=== PATIENT | female | born 1940 | race Caucasian/White ===

== ENCOUNTER 2016-10-15 18:41 | Inpatient (IN) | payer OTHER, MEDICARE ==
[~2016-10-15] VITALS: Ht 160 cm; Wt 94.7 kg
[~2016-10-15 18:41] MED LIST: ASPEC81 PO; CLTP PO; LISI-729 PO; MULT-513 PO; SIMV40TA2 PO; [UNRECOGNIZED DRUG - OTHER] PO
[2016-10-15] MEDS ORDERED: MoRPHine SULFATE 4 MG/ML 1 ML CARP\\VIAL IV STA ×2 (18:55→20:26)
[2016-10-15] MEDS ORDERED: SODIUM CHLORIDE 0.9% 1000ML 1,000 ML IV STA (18:55)
[2016-10-15] MEDS ORDERED: ONDANSETRON INJ 2 MG/ML 2 ML VIAL IV STA ×2 (18:55→20:26)
[2016-10-15] MEDS ORDERED: OPTIRAY 320 IV PRN (19:00)
--- NOTE | 2016-10-15 19:04 | EMERGENCY ROOM VISIT NOTE ---
History Report prepared by Julio: Ian Solis Under the Supervision of: Dr. Cathi Tran M.D. First contact with patient: 18:51 Chief Complaint: CHEST PAIN Stated Complaint: CHEST PAIN- FACTOR FIVE History of Present Illness The patient is a 76 year old female who presents to the Emergency Room with complaints of sharp, stabbing chest pain that began 45 minutes ago. She rates her pain a 9/10 in severity. She was not doing anything abnormal when the pain began, taking her dog outside. She is short of breath secondary to her pain. Her pain is exacerbated secondary to her pain. She denies any abdominal pain. Prior to arrival, she took two baby aspirin. She has a past medical history of atrial fibrillation, fibromyalgia, and factor V. Source of History: patient Onset: 45 minutes ago Position: chest (right) Symptom Intensity: 9/10 Quality: stabbing Timing: constant Modifying Factors (Worsening): breathing Associated Symptoms: + SOB, No abdominal pain Review of Systems See HPI for pertinent positives & negatives. A total of 10 systems reviewed and were otherwise negative. Past Medical & Surgical Medical Problems: (1) Atrial fibrillation (2) Factor 5 Leiden mutation, heterozygous (3) Fibromyalgia Family History Omitted secondary to the patient's age. Social History Smoking Status: Never Smoker Smokeless Tobacco Use: No Drug Use: none Marital Status: Occupation Status: retired Current/Historical Medications Scheduled Acyclovir (Acyclovir), 400 MG PO DAILY Aspirin (Aspirin Ec), 81 MG PO DAILY Azelastine Hcl-Fluticasone Pro (Dymista), 1 SPRY FARZANEH BID Calcium Carbonate-Cholecalcife (Caltrate 600+D), 1 TAB PO DAILY Fish Oil ([place]-3), 1 CAP PO DAILY Lisinopril (Prinivil), 10 MG PO DAILY Metoprolol Succ (Toprol Xl) (Toprol-Xl), 25 MG PO DAILY Milnacipran Hcl (Savella), 50 MG PO QAM Milnacipran Hcl (Savella), 100 MG PO HS Simvastatin (Zocor), 40 MG PO QPM Scheduled PRN Fexofenadine HCl (Allergy Relief 24Hr), 180 MG PO DAILY PRN for ALLERGIC REACTION Fluticasone Propionate (Nasal) (Flonase Allergy Relief), 2 SPRAYS FARZANEH DAILY PRN for ALLERGIC REACTION Meloxicam (Mobic), 15 MG PO DAILY PRN for Pain Allergies Coded Allergies: Adhesives (Verified Allergy, Mild, TAPE, 05/07/14) Codeine (Verified Allergy, Mild, `, 05/07/14) Azithromycin (Verified Allergy, Unknown, UNKNOWN, 10/15/16) CI Pigment Blue 63 (Verified Allergy, Unknown, UNKNOWN, 10/15/16) Celecoxib (Verified Allergy, Unknown, UNKNOWN, 10/15/16) Duloxetine (Verified Allergy, Unknown, UNKNOWN, 10/15/16) Eszopiclone (Verified Allergy, Unknown, UNKNOWN, 10/15/16) Fluoxetine (Verified Allergy, Unknown, UNKNOWN, 10/15/16) Pregabalin (Verified Allergy, Unknown, UNKNOWN, 10/15/16) Tramadol (Verified Allergy, Unknown, UNKNOWN, 10/15/16) Venlafaxine (Verified Allergy, Unknown, UNKNOWN, 10/15/16) Amoxicillin (Verified Adverse Reaction, Intermediate, DIARRHEA, 10/15/16) Clavulanic Acid (Verified Adverse Reaction, Intermediate, DIARRHEA, 10/15/16 ) Physical Exam Vital Signs Date Time Temp Pulse Resp B/P (MAP) Pulse Ox O2 Delivery O2 Flow Rate FiO2 10/15/16 22:19 83 16 122/72 98 Nasal Cannula 3.0 NIBP 10/15/16 20:03 88 16 127/77 92 Room Air 10/15/16 19:16 98 Room Air 10/15/16 19:14 93 Room Air 10/15/16 19:05 94 10/15/16 18:51 36.8 108 24 148/88 92 Room Air 10/15/16 18:45 36.8 108 24 92 Room Air Physical Exam Vital signs reviewed. General: Elderly well-appearing female, in significant distress, holding anterior chest. HEENT: No scleral icterus, PERRLA, neck supple. Atraumatic. Cardiovascular: Tachycardic rate and rhythm, no extra sounds. Pulmonary: Crackles to the right greater than left base bilaterally, splinting with deep inspiration. Abdomen: Soft, nontender, nondistended, obese, positive bowel sounds. Musculoskeletal: Atraumatic, chronic lymphedema of bilateral lower extremities. Neurologic: Patient awake alert and oriented x 3 Skin: Warm, dry, no rash Medical Decision & Procedures ER Provider Diagnostic Interpretation: Radiology results as stated below per my review and radiologist interpretation: (CHEST FOR PE) ANGIO WITH CT DOSE: 346.01 mGy.cm HISTORY: 76 years-old Female acute right-sided chest pain with history of factor V Leiden syndrome. Initial exam. TECHNIQUE: Multiple CTA images of the chest were obtained after the intravenous administration of 94 ml Optiray 320. Coronal and sagittal MIPS were obtained from the axial data set and were submitted for review. A dose lowering technique was utilized adhering to the principles of ALARA. COMPARISON: CTA chest 05/07/2014. FINDINGS: CTA: Heart is mildly enlarged without pericardial effusion. Is mild fusiform dilation of the ascending thoracic aorta, 3.8 x 4.0 cm appears unchanged. No dissection. Medial course of the bilateral common carotids noted. Pulmonary arterial tree is well-opacified to the level of the subsegmental branches. Small filling defects are present within segmental and subsegmental branches of the right lower lobe with additional filling defects within segmental and subsegmental branches of the lateral segment right middle lobe. No evidence of right heart strain. CT CHEST: Heterogeneous thyroid is noted without dominant nodule. No pathologically enlarged lymph nodes by CT size criteria. Trace right pleural effusion. Dependent subsegmental bibasilar groundglass opacities suggest atelectasis. Triangular pleural-based 2.5 x 2.0 cm opacity of the lateral segment right middle lobe is compatible with pulmonary infarction. No pneumothorax. Central airways are patent. Mild bronchial wall thickening is seen at the level of lung bases. There is mild gaseous distention of the mid esophagus. Bones appear intact. There is mild convex right curvature of the thoracic spine. IMPRESSION: 1. Pulmonary emboli are present within segmental and subsegmental branches of the posterior basal segment right lower lobe and lateral segment right middle lobe. Small associated pulmonary infarction of the lateral segment right middle lobe. No evidence of right heart strain. 2. Trace right pleural effusion. 3. Mild fusiform dilation of the ascending thoracic aorta, 4.0 cm, unchanged from 05/07/2014. The above report was generated using voice recognition software. It may contain grammatical, syntax or spelling errors. Electronically signed by: Octaviano Nicholas M.D. 10/15/2016 8:39 PM Dictated Date/Time: 10/15/2016 8:30 PM Laboratory Results 10/15/16 19:25 Red Blood Count 4.92, Mean Corpuscular Volume 91.7, Mean Corpuscular Hemoglobin 29.9, Mean Corpuscular Hemoglobin Concent 32.6, Mean Platelet Volume 9.8, Neutrophils (%) (Auto) 61.5, Lymphocytes (%) (Auto) 24.0, Monocytes (%) (Auto) 12.3, Eosinophils (%) (Auto) 1.5, Basophils (%) (Auto) 0.4, Neutrophils # (Auto ) 4.91, Lymphocytes # (Auto) 1.91, Monocytes # (Auto) 0.98, Eosinophils # (Auto ) 0.12, Basophils # (Auto) 0.03 10/15/16 19:25 Test 10/15/16 19:25 10/15/16 19:30 White Blood Count 7.97 K/uL (4.8-10.8) Red Blood Count 4.92 M/uL (4.2-5.4) Hemoglobin 14.7 g/dL (12.0-16.0) Hematocrit 45.1 % (37-47) Mean Corpuscular Volume 91.7 fL (80-100) Mean Corpuscular Hemoglobin 29.9 pg (25-34) Mean Corpuscular Hemoglobin Concent 32.6 g/dl (32-36) Platelet Count 183 K/uL (130-400) Mean Platelet Volume 9.8 fL (7.4-10.4) Neutrophils (%) (Auto) 61.5 % Lymphocytes (%) (Auto) 24.0 % Monocytes (%) (Auto) 12.3 % Eosinophils (%) (Auto) 1.5 % Basophils (%) (Auto) 0.4 % Neutrophils # (Auto) 4.91 K/uL (1.4-6.5) Lymphocytes # (Auto) 1.91 K/uL (1.2-3.4) Monocytes # (Auto) 0.98 K/uL (0.11-0.59) Eosinophils # (Auto) 0.12 K/uL (0-0.5) Basophils # (Auto) 0.03 K/uL (0-0.2) RDW Standard Deviation 48.2 fL (36.4-46.3) RDW Coefficient of Variation 14.3 % (11.5-14.5) Immature Granulocyte % (Auto) 0.3 % Immature Granulocyte # (Auto) 0.02 K/uL (0.00-0.02) Prothrombin Time 10.7 SECONDS (9.0-12.0) Prothromb Time International Ratio 1.0 (0.9-1.1) Activated Partial Thromboplast Time 25.5 SECONDS (21.0-31.0) Partial Thromboplastin Ratio 1.0 Anion Gap 8.0 mmol/L (3-11) Est Creatinine Clear Calc Drug Dose 59.8 ml/min Estimated GFR () 75.5 Estimated GFR (Non- 65.2 BUN/Creatinine Ratio 21.7 (10-20) Calcium Level 9.1 mg/dl (8.5-10.1) Total Bilirubin 0.3 mg/dl (0.2-1) Direct Bilirubin < 0.1 mg/dl (0-0.2) Aspartate Amino Transf (AST/SGOT) 21 U/L (15-37) Alanine Aminotransferase (ALT/SGPT) 28 U/L (12-78) Alkaline Phosphatase 52 U/L (45-117) Total Creatine Kinase 92 U/L (26-192) Creatine Kinase MB 0.8 ng/ml (0.5-3.6) Creatine Kinase MB Ratio 0.9 (0-3.0) Total Protein 7.1 gm/dl (6.4-8.2) Albumin 3.8 gm/dl (3.4-5.0) Bedside D-Dimer > 450 ng/mlFEU (0-450) Bedside Troponin I < 0.030 ng/ml (0-0.045) Laboratory results per my review. Medications Administered Medications (Trade) Dose Ordered Sig/Tish Route Start Time Stop Time Status Last Admin Dose Admin Sodium Chloride 1,000 ml @ 125 mls/hr Q8H STAT IV 10/15/16 18:55 10/16/16 02:54 10/15/16 18:55 125 MLS/HR Morphine Sulfate (MoRPHine SULFATE INJ) 4 mg NOW STAT IV 10/15/16 18:55 10/15/16 18:57 DC 10/15/16 18:55 4 MG Ondansetron HCl (Zofran Inj) 4 mg NOW STAT IV 10/15/16 18:55 10/15/16 18:57 DC 10/15/16 18:55 4 MG Ondansetron HCl (Zofran Inj) 4 mg NOW STAT IV 10/15/16 20:26 10/15/16 20:27 DC 10/15/16 20:26 4 MG Fentanyl Citrate (Fentanyl Inj) 50 mcg NOW STAT IV 10/15/16 20:31 10/15/16 20:33 DC 10/15/16 20:31 50 MCG Heparin Sodium/ Dextrose (Heparin 25,000 Unit/500ml D5W) 25,000 unit STK-MED ONCE .ROUTE 10/15/16 21:53 10/15/16 21:54 DC 10/15/16 22:12 25,000 UNIT Heparin Sodium (Porcine) (Heparin Sq 5000 Unit/0.5ml) 5,000 unit STK-MED ONCE .ROUTE 10/15/16 21:53 10/15/16 21:54 DC 10/15/16 22:13 5,000 UNIT ECG Indication: chest pain Rate (beats per minute): 101 Rhythm: sinus tachycardia Findings: nonspecific-ST abn (Anterolateral), left axis deviation, other ( Possible previous inferior infarct) ED Course 1850: Past medical records reviewed. The patient was evaluated in room A3. A complete history and physical examination was performed. 1854: Ordered Zofran Inj 4 mg IV, Morphine Sulfate 4 mg IV, Sodium Chloride 1000 ml @ 125 mls/hr IV 2025: Ordered Zofran Inj 4 mg IV, Morphine Sulfate 4 mg IV 2030: Ordered Fentanyl Inj 50 mcg IV 2121: Ordered Heparin Sodium/Dextrose 1 ea N/A 2129: Upon reevaluation, the patient is resting comfortably. I discussed laboratory and radiographic results with her. She verbalized agreement of the treatment plan. I spoke with Dr. Stafford, a resident working with Dr. Mancera of the [facility]. The patient will be evaluated for further management and care. Medical Decision Differential diagnosis: Etiologies such as infections, reactive airway disease, pneumonia, pneumothorax , COPD, CHF, cardiac ischemia, pulmonary embolism, musculoskeletal, gastrointestinal, as well as others were entertained. This patient was evaluated and appeared to be in no significant distress. IV access was obtained and laboratory work was drawn. Patient was medicated with IV morphine and Zofran for her discomfort. IV fluids were initiated. EKG reveals nonspecific ST change in the anterior lateral leads. Patient was sent for CT scan of the chest as her d-dimer is greater than 450. This study is consistent with acute pulmonary emboli. Patient required additional IV medication for pain and was given fentanyl 50 g IV and Zofran 4 mg IV. IV heparin was ordered and the patient was discussed with the hospitalist service for further management. Patient family are aware of the plan and agree. Medication Reconcilliation Current Medication List: was personally reviewed by me Blood Pressure Screening Patient's blood pressure: Elevated blood pressure Blood pressure disposition: Elevated BP felt to be situational Consults Time Called: 2124 Consulting Physician: Dr. Stafford - Resident working with Dr. Mancera - [facility] – [place] Returned Call: [phone] I reviewed the patient's case with her. She will evaluate the patient for further management. Impression Primary Impression: Pulmonary emboli Scribe Attestation The scribe's documentation has been prepared under my direction and personally reviewed by me in its entirety. I confirm that the note above accurately reflects all work, treatment, procedures, and medical decision making performed by me. Departure Information Dispostion Being Evaluated By Hospitalist Referrals Francisco Wallis M.D. (PCP) Patient Instructions My [facility]
[2016-10-15] MEDS ORDERED: ACYC400T PO (19:19)
[2016-10-15] MEDS ORDERED: FEXO-152 PO (19:20)
[2016-10-15] MEDS ORDERED: ASPI81TA28 PO (19:21)
[2016-10-15] MEDS ORDERED: AZEL30SP NAE (19:22)
[2016-10-15] MEDS ORDERED: CALC-354 PO (19:23)
[2016-10-15] MEDS ORDERED: LISI10TA PO (19:25)
[2016-10-15] MEDS ORDERED: MELO15TA10 PO (19:26)
[2016-10-15] MEDS ORDERED: METO25TA3 PO (19:27)
[2016-10-15] MEDS ORDERED: MILN50TA PO ×2 (19:29→19:30)
[2016-10-15] MEDS ORDERED: OMEG10007 PO (19:32)
[2016-10-15 19:34] LABS: BASO % 0.4 %; BASO ABS # 0.03 K/uL (0-0.2); COMPLETE YES; EOS % 1.5 %; HEMATOCRIT 45.1 % (37-47); IG% 0.3 %; LYMPH ABS # 1.91 K/uL (1.2-3.4); MEAN CELL VOLUME 91.7 fL (80-100); MEAN CORPUSCULAR HEMOGLOBIN 29.9 pg (25-34); MEAN CORPUSCULAR HGB CONC 32.6 g/dl (32-36); MEAN PLATELET VOLUME 9.8 fL (7.4-10.4); MONO % 12.3 %; NEUT % 61.5 %; PLATELET COUNT 183 K/uL (130-400); RED BLOOD COUNT 4.92 M/uL (4.2-5.4); WHITE BLOOD COUNT 7.97 K/uL (4.8-10.8)
[2016-10-15] MEDS ORDERED: FLUT0.15 NAE (19:34)
[2016-10-15 19:45] LABS: PROTHROMBIN TIME (PATIENT) 10.7 SECONDS (9.0-12.0)
[2016-10-15 19:49] LABS: POINT OF CARE TROPONIN I < 0.030 ng/ml (0-0.045)
[2016-10-15 19:58] LABS: ALT/SGPT 28 U/L (12-78); BLOOD UREA NITROGEN 19 mg/dl (7-18); BUN/CREATININE RATIO 21.7 (10-20); CALCIUM 9.1 mg/dl (8.5-10.1); CARBON DIOXIDE 25 mmol/L (21-32); CHLORIDE 107 mmol/L (98-107); CREATININE 0.87 mg/dl (0.60-1.20); GLUCOSE 107 mg/dl (70-99); POTASSIUM 3.7 mmol/L (3.5-5.1); SODIUM 140 mmol/L (136-145)
[2016-10-15 20:03] LABS: ALKALINE PHOSPHATASE 52 U/L (45-117); AST/SGOT 21 U/L (15-37); CKMB/CK RATIO 0.9 (0-3.0)
[2016-10-15] MEDS ORDERED: FENTANYL CITRATE INJ 50 MCG/1 ML 2 ML VIAL IV STA (20:31)
--- NOTE | 2016-10-15 20:41 | DIAGNOSTIC IMAGING REPORT ---
(CHEST FOR PE) ANGIO WITH CT DOSE: 346.01 mGy.cm HISTORY: 76 years-old Female acute right-sided chest pain with history of factor V Leiden syndrome. Initial exam. TECHNIQUE: Multiple CTA images of the chest were obtained after the intravenous administration of 94 ml Optiray 320. Coronal and sagittal MIPS were obtained from the axial data set and were submitted for review. A dose lowering technique was utilized adhering to the principles of ALARA. COMPARISON: CTA chest 05/07/2014. FINDINGS: CTA: Heart is mildly enlarged without pericardial effusion. Is mild fusiform dilation of the ascending thoracic aorta, 3.8 x 4.0 cm appears unchanged. No dissection. Medial course of the bilateral common carotids noted. Pulmonary arterial tree is well-opacified to the level of the subsegmental branches. Small filling defects are present within segmental and subsegmental branches of the right lower lobe with additional filling defects within segmental and subsegmental branches of the lateral segment right middle lobe. No evidence of right heart strain. CT CHEST: Heterogeneous thyroid is noted without dominant nodule. No pathologically enlarged lymph nodes by CT size criteria. Trace right pleural effusion. Dependent subsegmental bibasilar groundglass opacities suggest atelectasis. Triangular pleural-based 2.5 x 2.0 cm opacity of the lateral segment right middle lobe is compatible with pulmonary infarction. No pneumothorax. Central airways are patent. Mild bronchial wall thickening is seen at the level of lung bases. There is mild gaseous distention of the mid esophagus. Bones appear intact. There is mild convex right curvature of the thoracic spine. IMPRESSION: 1. Pulmonary emboli are present within segmental and subsegmental branches of the posterior basal segment right lower lobe and lateral segment right middle lobe. Small associated pulmonary infarction of the lateral segment right middle lobe. No evidence of right heart strain. 2. Trace right pleural effusion. 3. Mild fusiform dilation of the ascending thoracic aorta, 4.0 cm, unchanged from 05/07/2014. The above report was generated using voice recognition software. It may contain grammatical, syntax or spelling errors. Electronically signed by: Octaviano Nicholas M.D. 10/15/2016 8:39 PM Dictated Date/Time: 10/15/2016 8:30 PM
[2016-10-15] MEDS ORDERED: HEPARIN 25000 UNIT/500 ML D5W ONE (21:53)
[2016-10-15] MEDS ORDERED: HEPARIN SOD 5000 UNIT/0.5 ML CARP ONE (21:53)
[2016-10-15 22:40] LABS: URINE APPEARANCE CLEAR (CLEAR); URINE BILIRUBIN NEG (NEG); URINE COLOR YELLOW; URINE EPITHELIAL CELL AUTO >30 /lpf (0-5); URINE NITRITE NEG (NEG); URINE SPECIFIC GRAVITY > 1.045 (1.000-1.030); UROBILINOGEN NEG (NEG); ZZUR CULT IF INDIC CLEAN CATCH NO
[2016-10-15 22:41] LABS: MANUAL MICROSCOPIC REQUIRED? NO; REVIEW REQ? YES
[2016-10-15] MEDS ORDERED: HEPARIN 25000 UNIT/500 ML D5W IV STA (22:57)
--- NOTE | 2016-10-15 22:57 | History and Physical ---
History & Physical Date & Time of Service: Oct 15, 2016 at 22:56 Chief Complaint: Chest Pain- Factor Five Primary Care Physician: Francisco Wallis M.D. History of Present Illness Source: patient, family 76-year-old female with a past medical history of hypertension, hyperlipidemia, fibromyalgia, atrial fibrillation , factor V Leiden mutation presented to ER with complaints of chest pain that started about 45 minutes prior to arrival. She described the pain as stabbing, 10/10 in severity with started in the back of her chest and radiating to the front especially on the right side. She has worsening pain with deep breath but denies any shortness of breath, palpitations or dizziness. Denies any nausea, vomiting or diaphoresis. Denies fevers or chills, coughing. She is a nonsmoker and denies any recent immobilization including long-haul travel. Past Medical/Surgical History Medical Problems: (1) Atrial fibrillation Status: Chronic (2) Factor 5 Leiden mutation, heterozygous Status: Chronic (3) Fibromyalgia Status: Chronic Family History Noncontributory Social History Smoking Status: Never Smoker Smokeless Tobacco Use: No Drug Use: none Marital Status: Occupational Status: retired Immunizations History of Influenza Vaccine: Unknown History of Tetanus Vaccine?: Unknown History of Pneumococcal: Unknown History of Hepatitis B Vaccine: Unknown Multi-Drug Resistant Organisms History of MDRO: No Allergies Coded Allergies: Adhesives (Verified Allergy, Mild, TAPE, 05/07/14) Codeine (Verified Allergy, Mild, `, 05/07/14) Azithromycin (Verified Allergy, Unknown, UNKNOWN, 10/15/16) CI Pigment Blue 63 (Verified Allergy, Unknown, UNKNOWN, 10/15/16) Celecoxib (Verified Allergy, Unknown, UNKNOWN, 10/15/16) Duloxetine (Verified Allergy, Unknown, UNKNOWN, 10/15/16) Eszopiclone (Verified Allergy, Unknown, UNKNOWN, 10/15/16) Fluoxetine (Verified Allergy, Unknown, UNKNOWN, 10/15/16) Pregabalin (Verified Allergy, Unknown, UNKNOWN, 10/15/16) Tramadol (Verified Allergy, Unknown, UNKNOWN, 10/15/16) Venlafaxine (Verified Allergy, Unknown, UNKNOWN, 10/15/16) Amoxicillin (Verified Adverse Reaction, Intermediate, DIARRHEA, 10/15/16) Clavulanic Acid (Verified Adverse Reaction, Intermediate, DIARRHEA, 10/15/16 ) Home Medications Scheduled Acyclovir (Acyclovir), 400 MG PO DAILY Aspirin (Aspirin Ec), 81 MG PO DAILY Azelastine Hcl-Fluticasone Pro (Dymista), 1 SPRY FARZANEH BID Calcium Carbonate-Cholecalcife (Caltrate 600+D), 1 TAB PO DAILY Fish Oil ([place]-3), 1 CAP PO DAILY Lisinopril (Prinivil), 10 MG PO DAILY Metoprolol Succ (Toprol Xl) (Toprol-Xl), 25 MG PO DAILY Milnacipran Hcl (Savella), 50 MG PO QAM Milnacipran Hcl (Savella), 100 MG PO HS Simvastatin (Zocor), 40 MG PO QPM Scheduled PRN Fexofenadine HCl (Allergy Relief 24Hr), 180 MG PO DAILY PRN for ALLERGIC REACTION Fluticasone Propionate (Nasal) (Flonase Allergy Relief), 2 SPRAYS FARZANEH DAILY PRN for ALLERGIC REACTION Meloxicam (Mobic), 15 MG PO DAILY PRN for Pain Review of Systems Constitutional: No fever, No chills Eyes: No worsening of vision ENT: No hearing loss Respiratory: No cough, No sputum, No shortness of breath Cardiovascular: + chest pain, No orthopnea Abdomen: No pain, No nausea, No vomiting, No diarrhea Musculoskeletal: No joint pain Genitourinary - Female: No dysuria, No urinary frequency Neurologic: No memory loss Psychiatric: No depression symptoms Endocrine: No fatigue Hematologic / Lymphatic: No abnormal bleeding/bruising Integumentary: No rash Allergic / Immunologic: No environmental allergies Physical Exam Vital Signs Date Time Temp Pulse Resp B/P (MAP) Pulse Ox O2 Delivery O2 Flow Rate FiO2 10/15/16 22:19 83 16 122/72 98 Nasal Cannula 3.0 NIBP 10/15/16 20:03 88 16 127/77 92 Room Air 10/15/16 19:16 98 Room Air 10/15/16 19:14 93 Room Air 10/15/16 19:05 94 10/15/16 18:51 36.8 108 24 148/88 92 Room Air 10/15/16 18:45 36.8 108 24 92 Room Air General Appearance: WD/WN Respiratory/Chest: chest non-tender, lungs clear, normal breath sounds, no respiratory distress Cardiovascular: + irregularly irregular Abdomen/GI: normal bowel sounds, non tender, soft Extremities/Musculoskelatal: + pedal edema (chronic) Neurologic/Psych: alert, normal mood/affect, oriented x 3 Diagnostics Laboratory Results Results Past 24 Hours Test 10/15/16 19:25 10/15/16 19:30 10/15/16 22:20 Range/Units White Blood Count 7.97 4.8-10.8 K/uL Red Blood Count 4.92 4.2-5.4 M/uL Hemoglobin 14.7 12.0-16.0 g/dL Hematocrit 45.1 37-47 % Mean Corpuscular Volume 91.7 80-100 fL Mean Corpuscular Hemoglobin 29.9 25-34 pg Mean Corpuscular Hemoglobin Concent 32.6 32-36 g/dl Platelet Count 183 130-400 K/uL Mean Platelet Volume 9.8 7.4-10.4 fL Neutrophils (%) (Auto) 61.5 % Lymphocytes (%) (Auto) 24.0 % Monocytes (%) (Auto) 12.3 % Eosinophils (%) (Auto) 1.5 % Basophils (%) (Auto) 0.4 % Neutrophils # (Auto) 4.91 1.4-6.5 K/uL Lymphocytes # (Auto) 1.91 1.2-3.4 K/uL Monocytes # (Auto) 0.98 0.11-0.59 K/uL Eosinophils # (Auto) 0.12 0-0.5 K/uL Basophils # (Auto) 0.03 0-0.2 K/uL RDW Standard Deviation 48.2 36.4-46.3 fL RDW Coefficient of Variation 14.3 11.5-14.5 % Immature Granulocyte % (Auto) 0.3 % Immature Granulocyte # (Auto) 0.02 0.00-0.02 K/uL Prothrombin Time 10.7 9.0-12.0 SECONDS Prothromb Time International Ratio 1.0 0.9-1.1 Activated Partial Thromboplast Time 25.5 21.0-31.0 SECONDS Partial Thromboplastin Ratio 1.0 Sodium Level 140 136-145 mmol/L Potassium Level 3.7 3.5-5.1 mmol/L Chloride Level 107 98-107 mmol/L Carbon Dioxide Level 25 21-32 mmol/L Anion Gap 8.0 3-11 mmol/L Blood Urea Nitrogen 19 7-18 mg/dl Creatinine 0.87 0.60-1.20 mg/dl Est Creatinine Clear Calc Drug Dose 59.8 ml/min Estimated GFR () 75.5 Estimated GFR (Non- 65.2 BUN/Creatinine Ratio 21.7 10-20 Random Glucose 107 70-99 mg/dl Calcium Level 9.1 8.5-10.1 mg/dl Total Bilirubin 0.3 0.2-1 mg/dl Direct Bilirubin < 0.1 0-0.2 mg/dl Aspartate Amino Transf (AST/SGOT) 21 15-37 U/L Alanine Aminotransferase (ALT/SGPT) 28 12-78 U/L Alkaline Phosphatase 52 45-117 U/L Total Creatine Kinase 92 26-192 U/L Creatine Kinase MB 0.8 0.5-3.6 ng/ml Creatine Kinase MB Ratio 0.9 0-3.0 Total Protein 7.1 6.4-8.2 gm/dl Albumin 3.8 3.4-5.0 gm/dl Bedside D-Dimer > 450 0-450 ng/mlFEU Bedside Troponin I < 0.030 0-0.045 ng/ml Urine Color YELLOW Urine Appearance CLEAR CLEAR Urine pH 5.0 4.5-7.5 Urine Specific [place] > 1.045 1.000-1.030 Urine Protein NEG NEG Urine Glucose (UA) NEG NEG Urine Ketones 1+ NEG Urine Occult Blood TRACE NEG Urine Nitrite NEG NEG Urine Bilirubin NEG NEG Urine Urobilinogen NEG NEG Urine Leukocyte Esterase NEG NEG Urine WBC (Auto) 1-5 0-5 /hpf Urine RBC (Auto) 0-4 0-4 /hpf Urine Hyaline Casts (Auto) 5-10 0-5 /lpf Urine Epithelial Cells (Auto) >30 0-5 /lpf Urine Bacteria (Auto) NEG NEG Urine Crystals CALCIUM OXALATE NONE PRSENT Diagnostic Radiology CHEST FOR PE) ANGIO WITH CT DOSE: 346.01 mGy.cm HISTORY: 76 years-old Female acute right-sided chest pain with history of factor V Leiden syndrome. Initial exam. TECHNIQUE: Multiple CTA images of the chest were obtained after the intravenous administration of 94 ml Optiray 320. Coronal and sagittal MIPS were obtained from the axial data set and were submitted for review. A dose lowering technique was utilized adhering to the principles of ALARA. COMPARISON: CTA chest 05/07/2014. FINDINGS: CTA: Heart is mildly enlarged without pericardial effusion. Is mild fusiform dilation of the ascending thoracic aorta, 3.8 x 4.0 cm appears unchanged. No dissection. Medial course of the bilateral common carotids noted. Pulmonary arterial tree is well-opacified to the level of the subsegmental branches. Small filling defects are present within segmental and subsegmental branches of the right lower lobe with additional filling defects within segmental and subsegmental branches of the lateral segment right middle lobe. No evidence of right heart strain. CT CHEST: Heterogeneous thyroid is noted without dominant nodule. No pathologically enlarged lymph nodes by CT size criteria. Trace right pleural effusion. Dependent subsegmental bibasilar groundglass opacities suggest atelectasis. Triangular pleural-based 2.5 x 2.0 cm opacity of the lateral segment right middle lobe is compatible with pulmonary infarction. No pneumothorax. Central airways are patent. Mild bronchial wall thickening is seen at the level of lung bases. There is mild gaseous distention of the mid esophagus. Bones appear intact. There is mild convex right curvature of the thoracic spine. IMPRESSION: 1. Pulmonary emboli are present within segmental and subsegmental branches of the posterior basal segment right lower lobe and lateral segment right middle lobe. Small associated pulmonary infarction of the lateral segment right middle lobe. No evidence of right heart strain. 2. Trace right pleural effusion. 3. Mild fusiform dilation of the ascending thoracic aorta, 4.0 cm, unchanged from 05/07/2014. The above report was generated using voice recognition software. It may contain grammatical, syntax or spelling errors. Electronically signed by: Octaviano Nicholas M.D. 10/15/2016 8:39 PM Dictated Date/Time: 10/15/2016 8:30 PM Impression Assessment and Plan 76-year-old female with a past medical history of hypertension, hyperlipidemia, fibromyalgia, atrial fibrillation , factor V Leiden mutation presented to ER with complaints of chest pain that started about 45 minutes prior to arrival. Pleuritic chest pain secondary to pulmonary emboli/ factor V Leiden positive - CTA chest positive for pulmonary emboli within the medical and subsequently branches of right lower lobe and right middle lobe With a pulmonary infarction of the lateral segment of right middle lobe. - Started on IV heparin with bolus, will require transition to long-term anti- coagulation - Pain control with morphine as needed - Echo ordered Hypertension: - Continue lisinopril Hyperlipidemia: - Continue Zocor Atrial fibrillation: -Continue rate control with metoprolol - She was not on any anticoagulation at presentation. - CHA2D2- Vasc score of 6, annual stroke risk of 9.7% Fibromyalgia: - Continue Savella DVT prophylaxis: - Heparin IV Full code Disposition: Admitted to telemetry Attending Addendum: I have physically seen and examined this patient, have directed the resident's medical activities, and agree with the H&P as noted above with the following exceptions as noted. The patient is awake, alert and oriented 3, well-developed and well-nourished , normocephalic and atraumatic, lying in bed and in no acute distress. HEENT--PERRL, EOMI, mucous membranes and oropharynx dry. Neck--supple, no JVD or bruits, thyroid normal, trachea midline, no adenopathy. Heart--irregularly irregular no murmurs, rubs or gallops. Lungs--clear bilaterally with good air movement, no respiratory distress, no accessory muscle use. Abdomen--normal bowel sounds and soft, nontender and nondistended, no hernias or masses, no organomegaly. Extremities--no cyanosis, clubbing. Trace bilateral pitting pedal edema. There are good distal pulses b/l. Dermatologic--normal skin turgor, normal color, warm and dry, no abnormal lymph nodes, no rash. Neurologic--cranial nerves II through XII grossly intact. Rheumatologic--normal range of motion, nontender, muscles and joints. Psychiatric--normal affect. Assessment and Plan: Pulmonary emboli right middle lobe and right lower lobe/pulmonary infarction lateral segment of the right middle lobe-- Admitted to the telemetry unit. Start IV heparin standard dose weight base protocol without bolus. Morphine IV when necessary pain 2-D echocardiogram to assess for pulmonary hypertension or right heart strain. Level of Care Telemetry Advanced Directives Existing Advance Directive: No Existing Living Will: No Existing Power of Associate Director: No Resuscitation Status FULL RESUSCITATION VTE Prophylaxis VTE Risk Assessment Done? Y/N: Yes Risk Level: Moderate Given or contraindicated: Other Anticoagulation (IV heparin) Social Service Consult None Apply Resident Tracking Resident Involvement: Resident Care Provided Care Provided: Adult [facility] Medicine
[2016-10-15] MEDS ORDERED: POLYETHYLENE (MIRALAX) 17 GM PACK PO PRN (23:00)
[2016-10-15] MEDS ORDERED: ONDANSETRON INJ 2 MG/ML 2 ML VIAL IV PRN (23:00)
[2016-10-15] MEDS ORDERED: MoRPHine SULFATE 2 MG/ML CARP IV PRN (23:15)
[2016-10-15] MEDS ORDERED: HEPARIN 25,000 UNIT/500ML D5W 500 ML IV PRN (23:15)
[2016-10-16] VITALS (10 sets, daily range): BP systolic 98–139; BP diastolic 52–82; PULSE 56–82; TEMP 36.4–36.9; O2SAT 92–98; Ht 160 cm; Wt 94.7 kg
[2016-10-16] MEDS ORDERED: NURSING VERBAL MED ORDER ONE (01:30)
[2016-10-16] MEDS: ESZOPICLONE 1 MG TAB PO PRN ×2 (01:49→20:40)
[2016-10-16 04:24] LABS: PARTIAL THROMBOPLASTIN RATIO 3.2
[2016-10-16 05:55] LABS: BASO % 0.1 %; BASO ABS # 0.01 K/uL (0-0.2); COMPLETE YES; EOS % 0.1 %; HEMATOCRIT 39.8 % (37-47); IG% 0.1 %; LYMPH % 14.5 %; LYMPH ABS # 1.16 K/uL (1.2-3.4); MEAN CELL VOLUME 91.1 fL (80-100); MEAN CORPUSCULAR HEMOGLOBIN 30.2 pg (25-34); MEAN CORPUSCULAR HGB CONC 33.2 g/dl (32-36); MEAN PLATELET VOLUME 9.7 fL (7.4-10.4); MONO % 11.4 %; NEUT % 73.8 %; PLATELET COUNT 169 K/uL (130-400); RED BLOOD COUNT 4.37 M/uL (4.2-5.4); WHITE BLOOD COUNT 7.98 K/uL (4.8-10.8)
[2016-10-16 06:53] LABS: BUN/CREATININE RATIO 17.1 (10-20); CALCIUM 8.1 mg/dl (8.5-10.1); CREATININE 0.79 mg/dl (0.60-1.20); POTASSIUM 4.1 mmol/L (3.5-5.1)
--- NOTE | 2016-10-16 07:07 | DIAGNOSTIC IMAGING REPORT ---
ULTRASOUND BILATERAL LOWER EXTREMITY VENOUS CLINICAL HISTORY: Atypical chest pain. Factor 5 Leiden. COMPARISON STUDY: No priors. TECHNIQUE: Real-time, grayscale, and color Doppler sonography of the deep veins of the right and left lower extremity was performed from the inguinal crease to the calf. Compression and augmentation were utilized. FINDINGS: There is no sonographic evidence of deep venous thrombosis identified in the right or left lower extremity. The common femoral, superficial femoral, and popliteal veins are patent and normally compressible bilaterally. The greater saphenous vein and the profunda femoris vein at the junction with the common femoral vein are clear in both legs. The visualized calf veins are patent bilaterally. IMPRESSION: There is no sonographic evidence of deep venous thrombosis identified in the right or left lower extremity. Electronically signed by: Amado Villanueva M.D. 10/16/2016 7:05 AM Dictated Date/Time: 10/16/2016 7:05 AM
[2016-10-16] MEDS: ASPIRIN 81 MG ECTAB PO SCH (08:48)
[2016-10-16] MEDS: METOPROLOL SUCC 25MG EXT REL TAB PO SCH (08:48)
[2016-10-16] MEDS: LISINOPRIL 10 MG TAB PO SCH (08:48)
[2016-10-16] MEDS: ACYCLOVIR 400 MG TAB PO SCH (08:48)
[2016-10-16] MEDS: ACETAMINOPHEN 325 MG TAB PO PRN ×2 (10:52→18:50)
[2016-10-16 11:24] LABS: PARTIAL THROMBOPLASTIN RATIO 2.8
--- NOTE | 2016-10-16 14:31 | ECHOCARDIOGRAM REPORT ---
*NOTICE TO RECEIVING CONSTITUTION PARTY AGENCY This information is strictly Confidential and protected under [place] law. [place] law prohibits you from making any further disclosure of this information unless further disclosure is expressly permitted by the written consent of the person to whom it pertains or is authorized by law. A general authorization for the release of medical or other information is not sufficient for this purpose. Hospital accepts no responsibility if the information is made available to any other person, INCLUDING THE PATIENT. Interpretation Summary * Name: AN ARCEO Study Date: 10/16/2016 11:05 AM BP: 98/52 mmHg * Patient Location: [facility] HR: 82 * : 1940 (M/d/yyyy) Gender: Female Height: 63 in * Age: 76 yrs Ethnicity: CA Weight: 200 lb * Ordering Physician: Dominga Stafford * Referring Physician: Self, Referred * Performed By: Mata Chapa RCS * * Reason For Study: Pulmonary Embolism * BSA: 1.9 m2 * -- Conclusions -- * 1. Normal left ventricular size and systolic function. EF 55-60%. No regional wall motion abnormalities. No left ventricular hypertrophy. Type 1 diastolic dysfunction. * 2. No significant valvular abnormalities visualized. * 3. Normal estimated right ventricular systolic pressure. * 4. No prior study available for comparison. Procedure Details * A complete two-dimensional transthoracic echocardiogram was performed (2D, M-mode, Doppler and color flow Doppler). Left Ventricle * The left ventricle is normal in size. * There is normal left ventricular wall thickness. * Ejection Fraction = 55-60%. * Left ventricular systolic function is normal. * No regional wall motion abnormalities noted. Right Ventricle * The right ventricle is normal in size and function. Mitral Valve * The mitral valve is normal in structure and function. * There is no mitral valve stenosis. * There is trace mitral regurgitation. Tricuspid Valve * The tricuspid valve is not well visualized, but is grossly normal. * There is no tricuspid stenosis. * There is trace tricuspid regurgitation. Aortic Valve * The aortic valve is trileaflet. * No hemodynamically significant valvular aortic stenosis. * No aortic regurgitation is present. Pulmonic Valve * The pulmonary valve is inadequately visualized, but the Doppler data is adequate for interpretation. * There is no pulmonic valvular stenosis. * Mild pulmonic valvular regurgitation. Great Vessels * The aortic root is normal size. * Aortic arch of normal dimension. Pericardium/Pleural * There is no pericardial effusion. Great Vessels * Normal inferior vena cava size and collapsability with sniff indicates a normal right atrial pressure of 3 mmHg MMode 2D Measurements and Calculations IVSd 0.86 cm IVSs 1.2 cm LVIDd 4.9 cm LVIDs 3.3 cm LVPWd 0.73 cm LVPWs 1.4 cm IVS/LVPW 1.2 FS 31.7 % EDV(Teich) 111.3 ml ESV(Teich) 45.0 ml EF(Teich) 59.6 % EDV(cubed) 115.7 ml ESV(cubed) 36.8 ml EF(cubed) 68.2 % % IVS thick 43.2 % % LVPW thick 90.6 % LV mass(C)d 128.6 grams LV mass(C)dI 66.5 grams/m\S\2 LV mass(C)s 144.7 grams LV mass(C)sI 74.8 grams/m\S\2 SV(Teich) 66.4 ml SI(Teich) 34.3 ml/m\S\2 SV(cubed) 78.9 ml SI(cubed) 40.8 ml/m\S\2 Ao root diam 3.3 cm Ao root area 8.3 cm\S\2 ACS 1.8 cm LA dimension 3.3 cm asc Aorta Diam 3.4 cm LA/Ao 1.0 LVAd ap4 26.1 cm\S\2 LVLd ap4 7.3 cm EDV(MOD-sp4) 84.7 ml EDV(sp4-el) 78.9 ml LVAs ap4 16.9 cm\S\2 LVLs ap4 6.7 cm ESV(MOD-sp4) 42.0 ml ESV(sp4-el) 36.5 ml EF(MOD-sp4) 50.4 % EF(sp4-el) 53.8 % EDV(MOD-sp2) 105.8 ml ESV(MOD-sp2) 45.6 ml EF(MOD-sp2) 56.9 % SV(MOD-sp4) 42.7 ml SI(MOD-sp4) 22.1 ml/m\S\2 SV(MOD-sp2) 60.2 ml SI(MOD-sp2) 31.1 ml/m\S\2 SV(sp4-el) 42.4 ml SI(sp4-el) 21.9 ml/m\S\2 Doppler Measurements and Calculations MV E max avila 71.9 cm/sec MV A max avila 74.7 cm/sec MV E/A 0.96 MV P1/2t max avila 84.1 cm/sec MV P1/2t 53.9 msec MVA(P1/2t) 4.1 cm\S\2 MV dec slope 457.1 cm/sec\S\2 MV dec time 0.16 sec Ao V2 max 111.6 cm/sec Ao max PG 5.0 mmHg Ao max PG (full) -0.10 mmHg LV V1 max PG 5.1 mmHg LV V1 max 112.7 cm/sec PA V2 max 71.2 cm/sec PA max PG 2.1 mmHg PI max vaila 139.8 cm/sec PI max PG 8.3 mmHg PI dec slope 149.7 cm/sec\S\2 PI P1/2t 273.5 msec TR max avila 217.8 cm/sec RVSP(TR) 22.1 mmHg RAP systole 3.0 mmHg
--- NOTE | 2016-10-16 15:07 | Medical Student: [facility] ---
Med Student Progress Note Date of Service Oct 16, 2016. Subjective Pt evaluation today including: conversation w/ patient, conversation w/ family , physical exam, chart review, lab review, review of studies Pain: 3/10 at right chest wall, worse with inspiration PO Intake: Adequate Voiding: no voiding problems Ms. An Arceo is a 76-year-old female with a past medical history of hypertension, hyperlipidemia, fibromyalgia, atrial fibrillation , factor V Leiden heterozygous mutation who was admitted for pulmonary emboli on 10/15/16. She denies any recent surgery or long distance travel. She does report that her job involves sitting at a desk. Hospital Day 1: No acute events overnight. She reports that she feels better than yesterday and feels ready to go home. She denies any shortness of breath. She has some chest pain 3/10 with inspiration, which improves with IV morphine PRN. She was able to eat breakfast. She has not yet ambulated today. Review of Systems Constitutional: No fever, No chills, No weight loss Eyes: No worsening of vision, No redness ENT: No sore throat Respiratory: No cough, No wheezing, No shortness of breath Cardiac: + chest pain (right chest wall, 3/10 ), No palpitations Abdomen: No pain, No nausea, No vomiting, No diarrhea, No constipation Musculoskeletal: No muscle pain, No calf pain Female : No dysuria, No hematuria Neurologic: No weakness, No numbness/tingling Psychiatric: No depression symptoms, No anxiety Heme: + abnormal bleeding/bruising (Factor V Leiden heterozygous ) Endo: No excessive thirst, No excessive urination Skin: No rash, No itch Objective Vital Signs Date Time Temp Pulse Resp B/P (MAP) Pulse Ox O2 Delivery O2 Flow Rate FiO2 10/16/16 06:56 36.5 76 18 104/57 (73) 98 Room Air 10/16/16 04:00 95 Room Air 10/16/16 03:51 36.8 82 18 98/52 (67) 95 Room Air 10/16/16 00:34 36.4 72 20 121/67 98 Room Air 10/15/16 22:19 83 16 122/72 98 Nasal Cannula 3.0 NIBP 10/15/16 20:03 88 16 127/77 92 Room Air 10/15/16 19:16 98 Room Air 10/15/16 19:14 93 Room Air 10/15/16 19:05 94 10/15/16 18:51 36.8 108 24 148/88 92 Room Air 10/15/16 18:45 36.8 108 24 92 Room Air Physical Exam General Appearance: WD/WN, no apparent distress ENT: normal ENT inspection, hearing grossly normal Neck: supple, no adenopathy, thyroid normal, no carotid bruits Respiratory/Chest: chest non-tender, lungs clear, normal breath sounds, no respiratory distress, no accessory muscle use Cardiovascular: regular rate, rhythm, no edema, no gallop, no JVD, no murmur Abdomen: normal bowel sounds, non tender, soft, no organomegaly Extremities: non-tender, normal inspection, no pedal edema, no calf tenderness Neurologic/Psychiatric: no motor/sensory deficits, alert, normal mood/affect, oriented x 3 Skin: normal color, warm/dry, no rash Lymphatic: no adenopathy Laboratory Results Last 24 Hours Test 10/15/16 19:25 10/15/16 19:30 10/15/16 22:20 10/16/16 03:54 White Blood Count 7.97 K/uL Red Blood Count 4.92 M/uL Hemoglobin 14.7 g/dL Hematocrit 45.1 % Mean Corpuscular Volume 91.7 fL Mean Corpuscular Hemoglobin 29.9 pg Mean Corpuscular Hemoglobin Concent 32.6 g/dl Platelet Count 183 K/uL Mean Platelet Volume 9.8 fL Neutrophils (%) (Auto) 61.5 % Lymphocytes (%) (Auto) 24.0 % Monocytes (%) (Auto) 12.3 % Eosinophils (%) (Auto) 1.5 % Basophils (%) (Auto) 0.4 % Neutrophils # (Auto) 4.91 K/uL Lymphocytes # (Auto) 1.91 K/uL Monocytes # (Auto) 0.98 K/uL Eosinophils # (Auto) 0.12 K/uL Basophils # (Auto) 0.03 K/uL RDW Standard Deviation 48.2 fL RDW Coefficient of Variation 14.3 % Immature Granulocyte % (Auto) 0.3 % Immature Granulocyte # (Auto) 0.02 K/uL Prothrombin Time 10.7 SECONDS Prothromb Time International Ratio 1.0 Activated Partial Thromboplast Time 25.5 SECONDS 84.4 SECONDS Partial Thromboplastin Ratio 1.0 3.2 Sodium Level 140 mmol/L Potassium Level 3.7 mmol/L Chloride Level 107 mmol/L Carbon Dioxide Level 25 mmol/L Anion Gap 8.0 mmol/L Blood Urea Nitrogen 19 mg/dl Creatinine 0.87 mg/dl Est Creatinine Clear Calc Drug Dose 59.8 ml/min Estimated GFR () 75.5 Estimated GFR (Non- 65.2 BUN/Creatinine Ratio 21.7 Random Glucose 107 mg/dl Calcium Level 9.1 mg/dl Total Bilirubin 0.3 mg/dl Direct Bilirubin < 0.1 mg/dl Aspartate Amino Transf (AST/SGOT) 21 U/L Alanine Aminotransferase (ALT/SGPT) 28 U/L Alkaline Phosphatase 52 U/L Total Creatine Kinase 92 U/L Creatine Kinase MB 0.8 ng/ml Creatine Kinase MB Ratio 0.9 Total Protein 7.1 gm/dl Albumin 3.8 gm/dl Bedside D-Dimer > 450 ng/mlFEU Bedside Troponin I < 0.030 ng/ml Urine Color YELLOW Urine Appearance CLEAR Urine pH 5.0 Urine Specific [place] > 1.045 Urine Protein NEG Urine Glucose (UA) NEG Urine Ketones 1+ Urine Occult Blood TRACE Urine Nitrite NEG Urine Bilirubin NEG Urine Urobilinogen NEG Urine Leukocyte Esterase NEG Urine WBC (Auto) 1-5 /hpf Urine RBC (Auto) 0-4 /hpf Urine Hyaline Casts (Auto) 5-10 /lpf Urine Epithelial Cells (Auto) >30 /lpf Urine Bacteria (Auto) NEG Urine Crystals CALCIUM OXALATE Test 10/16/16 05:38 White Blood Count 7.98 K/uL Red Blood Count 4.37 M/uL Hemoglobin 13.2 g/dL Hematocrit 39.8 % Mean Corpuscular Volume 91.1 fL Mean Corpuscular Hemoglobin 30.2 pg Mean Corpuscular Hemoglobin Concent 33.2 g/dl Platelet Count 169 K/uL Mean Platelet Volume 9.7 fL Neutrophils (%) (Auto) 73.8 % Lymphocytes (%) (Auto) 14.5 % Monocytes (%) (Auto) 11.4 % Eosinophils (%) (Auto) 0.1 % Basophils (%) (Auto) 0.1 % Neutrophils # (Auto) 5.88 K/uL Lymphocytes # (Auto) 1.16 K/uL Monocytes # (Auto) 0.91 K/uL Eosinophils # (Auto) 0.01 K/uL Basophils # (Auto) 0.01 K/uL RDW Standard Deviation 47.7 fL RDW Coefficient of Variation 14.1 % Immature Granulocyte % (Auto) 0.1 % Immature Granulocyte # (Auto) 0.01 K/uL Sodium Level 140 mmol/L Potassium Level 4.1 mmol/L Chloride Level 108 mmol/L Carbon Dioxide Level 29 mmol/L Anion Gap 3.0 mmol/L Blood Urea Nitrogen 14 mg/dl Creatinine 0.79 mg/dl Est Creatinine Clear Calc Drug Dose 67.3 ml/min Estimated GFR () 84.9 Estimated GFR (Non- 73.2 BUN/Creatinine Ratio 17.1 Random Glucose 126 mg/dl Calcium Level 8.1 mg/dl Total Bilirubin 0.6 mg/dl Aspartate Amino Transf (AST/SGOT) 13 U/L Alanine Aminotransferase (ALT/SGPT) 22 U/L Alkaline Phosphatase 44 U/L Total Protein 6.0 gm/dl Albumin 3.0 gm/dl Globulin 3.0 gm/dl Albumin/Globulin Ratio 1.0 Medications Current Inpatient Medications Medications (Trade) Dose Ordered Sig/Tish Route Start Time Stop Time Status Last Admin Dose Admin Ioversol (Optiray 320) 100 ml UD PRN IV 10/15/16 19:00 10/19/16 18:59 Acetaminophen (Tylenol Tab) 650 mg Q4H PRN PO 10/15/16 23:00 11/14/16 22:59 10/16/16 10:52 650 MG Ondansetron HCl (Zofran Inj) 4 mg Q6H PRN IV 10/15/16 23:00 11/14/16 22:59 10/16/16 01:20 4 MG Polyethylene (Miralax Powder Packet) 17 gm DAILY PRN PO 10/15/16 23:00 11/14/16 22:59 Aspirin (Ecotrin Tab) 81 mg DAILY PO 10/16/16 09:00 11/15/16 08:59 Lisinopril (Zestril Tab) 10 mg DAILY PO 10/16/16 09:00 11/15/16 08:59 10/16/16 08:48 10 MG Metoprolol Succinate (Toprol Xl Tab) 25 mg DAILY PO 10/16/16 09:00 11/15/16 08:59 10/16/16 08:48 25 MG Simvastatin (Zocor Tab) 40 mg QPM PO 10/16/16 21:00 11/15/16 20:59 Miscellaneous Information (Order Awaiting Action) 1 ea QS N/A 10/16/16 00:00 11/15/16 00:00 Miscellaneous Information (Order Awaiting Action) 1 ea QS N/A 10/16/16 08:00 11/15/16 07:59 Miscellaneous Information (Order Awaiting Action) 1 ea QS N/A 10/16/16 08:00 11/15/16 07:59 Heparin Sodium/ Dextrose 500 ml @ 21 mls/hr [id number] PRN IV 10/15/16 23:15 10/16/16 20:30 Morphine Sulfate (MoRPHine SULFATE INJ) 1 mg Q4H PRN IV 10/15/16 23:15 10/29/16 23:14 10/16/16 01:19 1 MG Eszopiclone (Lunesta Tab) 2 mg HSZ PRN PO 10/16/16 01:30 11/15/16 01:29 10/16/16 01:49 2 MG Acyclovir (Zovirax Tab) 400 mg DAILY PO 10/16/16 09:00 11/15/16 08:59 10/16/16 08:48 400 MG Warfarin Sodium (Coumadin Tab) 5 mg DAILY@16 PO 10/16/16 16:00 11/15/16 15:59 Enoxaparin Sodium (Lovenox Inj) 90 mg Q12 SQ 10/16/16 21:00 11/15/16 20:59 Miscellaneous (Stop Order) 1 ea ONE ONCE N/A 10/16/16 20:30 10/16/16 20:31 Diagnostic Radiology CHEST FOR PE- ANGIO CT DOSE: 346.01 mGy.cm HISTORY: 76 years-old Female acute right-sided chest pain with history of factor V Leiden syndrome. Initial exam. TECHNIQUE: Multiple CTA images of the chest were obtained after the intravenous administration of 94 ml Optiray 320. Coronal and sagittal MIPS were obtained from the axial data set and were submitted for review. A dose lowering technique was utilized adhering to the principles of ALARA. COMPARISON: CTA chest 05/07/2014. FINDINGS: CTA: Heart is mildly enlarged without pericardial effusion. Is mild fusiform dilation of the ascending thoracic aorta, 3.8 x 4.0 cm appears unchanged. No dissection. Medial course of the bilateral common carotids noted. Pulmonary arterial tree is well-opacified to the level of the subsegmental branches. Small filling defects are present within segmental and subsegmental branches of the right lower lobe with additional filling defects within segmental and subsegmental branches of the lateral segment right middle lobe. No evidence of right heart strain. CT CHEST: Heterogeneous thyroid is noted without dominant nodule. No pathologically enlarged lymph nodes by CT size criteria. Trace right pleural effusion. Dependent subsegmental bibasilar groundglass opacities suggest atelectasis. Triangular pleural-based 2.5 x 2.0 cm opacity of the lateral segment right middle lobe is compatible with pulmonary infarction. No pneumothorax. Central airways are patent. Mild bronchial wall thickening is seen at the level of lung bases. There is mild gaseous distention of the mid esophagus. Bones appear intact. There is mild convex right curvature of the thoracic spine. IMPRESSION: 1. Pulmonary emboli are present within segmental and subsegmental branches of the posterior basal segment right lower lobe and lateral segment right middle lobe. Small associated pulmonary infarction of the lateral segment right middle lobe. No evidence of right heart strain. 2. Trace right pleural effusion. 3. Mild fusiform dilation of the ascending thoracic aorta, 4.0 cm, unchanged from 05/07/2014. Electronically signed by: Octaviano Nicholas M.D. 10/15/2016 8:39 PM Dictated Date/Time: 10/15/2016 8:30 PM EKG ECHOCARDIOGRAM Interpretation Summary * Name: AN ARCEO Study Date: 10/16/2016 11:05 AM BP: 98/52 mmHg * Patient Location: 301 HR: 82 * : 1940 (M/d/yyyy) Gender: Female Height: 63 in * Age: 76 yrs Ethnicity: [place] Weight: 200 lb * Ordering Physician: Dominga Stafford * Referring Physician: Self, Referred * Performed By: Mata Chapa RCS * * Reason For Study: Pulmonary Embolism * BSA: 1.9 m2 * -- Conclusions -- * 1. Normal left ventricular size and systolic function. EF 55-60%. No regional wall motion abnormalities. No left ventricular hypertrophy. Type 1 diastolic dysfunction. * 2. No significant valvular abnormalities visualized. * 3. Normal estimated right ventricular systolic pressure. * 4. No prior study available for comparison. Assessment and Plan Assessment and Plan: ASSESSMENT: Ms. An Arceo is a 76-year-old female with a past medical history of hypertension, hyperlipidemia, fibromyalgia, atrial fibrillation , factor V Leiden heterozygous mutation who was admitted for pulmonary emboli on 10/15/16. She denies any recent surgery or long distance travel. She does report that her job involves sitting at a desk. Her vitals remained stable overnight. PLAN: Pulmonary emboli in the setting of factor V Leiden heterozygous mutation CTA chest positive for pulmonary emboli within right lower lobe and right middle lobe Small pulmonary infarction of the lateral segment of right middle lobe Stop IV heparin Start Lovenox SQ 100mg q12h as bridge Plan to start Coumadin for a 6 month course Pain control with morphine or tylenol PRN No DVT in either lower extremity Echo 10/16/16- no right heart strain Plan to d/c home tomorrow on Lovenox and Coumadin, will need 6 months minimum anticoagulation Hypertension: Continue lisinopril Hyperlipidemia: Continue Zocor Atrial fibrillation: Continue rate control with metoprolol CHA2D2- Vasc score of 6, annual stroke risk of 9.7% Plan to d/c home tomorrow on Lovenox and Coumadin, will need 6 months minimum anticoagulation Fibromyalgia: Continue Savella DVT prophylaxis: Lovenox bridge to Coumadin Code: Full code Disposition: No longer requires Telemetry. Transfer to medical floor. Plan for possible discharge tomorrow
--- NOTE | 2016-10-16 15:18 | Progress Note ---
Subjective Date of Service: Oct 16, 2016. Subjective Pt evaluation today including: conversation w/ patient, conversation w/ family (daughter and son), physical exam, chart review, lab review, review of studies, review of inpatient medication list Pain: mild right sided chest pain PO Intake: adequate Voiding: no voiding problems patient doing well, minimal chest pain, some dyspnea on exertion but otherwise normal discussed treatment options looked into cost of Xarelto, copay would be $212/month, she cannot afford will elect to go with Heparin and Coumadin reviewed labs and vitals transfer to medical floor Problem List Medical Problems: (1) Pulmonary emboli Status: Acute Review of Systems Respiratory: + dyspnea on exertion Cardiac: + chest pain (mild, right sided) All Other Systems: Reviewed and Negative Medications Current Inpatient Medications Medications (Trade) Dose Ordered Sig/Tish Route Start Time Stop Time Status Last Admin Dose Admin Ioversol (Optiray 320) 100 ml UD PRN IV 10/15/16 19:00 10/19/16 18:59 Acetaminophen (Tylenol Tab) 650 mg Q4H PRN PO 10/15/16 23:00 11/14/16 22:59 10/16/16 10:52 650 MG Ondansetron HCl (Zofran Inj) 4 mg Q6H PRN IV 10/15/16 23:00 11/14/16 22:59 10/16/16 01:20 4 MG Polyethylene (Miralax Powder Packet) 17 gm DAILY PRN PO 10/15/16 23:00 11/14/16 22:59 Aspirin (Ecotrin Tab) 81 mg DAILY PO 10/16/16 09:00 11/15/16 08:59 Lisinopril (Zestril Tab) 10 mg DAILY PO 10/16/16 09:00 11/15/16 08:59 10/16/16 08:48 10 MG Metoprolol Succinate (Toprol Xl Tab) 25 mg DAILY PO 10/16/16 09:00 11/15/16 08:59 10/16/16 08:48 25 MG Simvastatin (Zocor Tab) 40 mg QPM PO 10/16/16 21:00 11/15/16 20:59 Miscellaneous Information (Order Awaiting Action) 1 ea QS N/A 10/16/16 00:00 11/15/16 00:00 Miscellaneous Information (Order Awaiting Action) 1 ea QS N/A 10/16/16 08:00 11/15/16 07:59 Miscellaneous Information (Order Awaiting Action) 1 ea QS N/A 10/16/16 08:00 11/15/16 07:59 Heparin Sodium/ Dextrose 500 ml @ 21 mls/hr [id number] PRN IV 10/15/16 23:15 10/16/16 20:30 Morphine Sulfate (MoRPHine SULFATE INJ) 1 mg Q4H PRN IV 10/15/16 23:15 10/29/16 23:14 10/16/16 01:19 1 MG Eszopiclone (Lunesta Tab) 2 mg HSZ PRN PO 10/16/16 01:30 11/15/16 01:29 10/16/16 01:49 2 MG Acyclovir (Zovirax Tab) 400 mg DAILY PO 10/16/16 09:00 11/15/16 08:59 10/16/16 08:48 400 MG Warfarin Sodium (Coumadin Tab) 5 mg DAILY@16 PO 10/16/16 16:00 11/15/16 15:59 Enoxaparin Sodium (Lovenox Inj) 90 mg Q12 SQ 10/16/16 21:00 11/15/16 20:59 Miscellaneous (Stop Order) 1 ea ONE ONCE N/A 10/16/16 20:30 10/16/16 20:31 Objective Vital Signs Date Time Temp Pulse Resp B/P (MAP) Pulse Ox O2 Delivery O2 Flow Rate FiO2 10/16/16 12:00 Room Air 10/16/16 11:40 36.6 56 18 123/82 (96) 93 Room Air 10/16/16 08:00 Room Air 10/16/16 06:56 36.5 76 18 104/57 (73) 98 Room Air 10/16/16 04:00 95 Room Air 10/16/16 03:51 36.8 82 18 98/52 (67) 95 Room Air 10/16/16 00:34 36.4 72 20 121/67 98 Room Air 10/15/16 22:19 83 16 122/72 98 Nasal Cannula 3.0 NIBP 10/15/16 20:03 88 16 127/77 92 Room Air 10/15/16 19:16 98 Room Air 10/15/16 19:14 93 Room Air 10/15/16 19:05 94 10/15/16 18:51 36.8 108 24 148/88 92 Room Air 10/15/16 18:45 36.8 108 24 92 Room Air Physical Exam General Appearance: WD/WN, no apparent distress Neck: supple, no adenopathy, no JVD, trachea midline Respiratory/Chest: chest non-tender, lungs clear, normal breath sounds, no respiratory distress, no accessory muscle use Cardiovascular: regular rate, rhythm, no edema, no gallop, no JVD, no murmur Abdomen: normal bowel sounds, non tender, soft, no organomegaly Extremities: normal range of motion, non-tender, normal inspection, no pedal edema, no calf tenderness 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, no motor/sensory deficits, alert, normal mood/affect, oriented x 3 Skin: normal color, warm/dry, no rash Lymphatic: no adenopathy Laboratory Results Last 24 Hours Test 10/15/16 19:25 10/15/16 19:30 10/15/16 22:20 10/16/16 03:54 White Blood Count 7.97 K/uL Red Blood Count 4.92 M/uL Hemoglobin 14.7 g/dL Hematocrit 45.1 % Mean Corpuscular Volume 91.7 fL Mean Corpuscular Hemoglobin 29.9 pg Mean Corpuscular Hemoglobin Concent 32.6 g/dl Platelet Count 183 K/uL Mean Platelet Volume 9.8 fL Neutrophils (%) (Auto) 61.5 % Lymphocytes (%) (Auto) 24.0 % Monocytes (%) (Auto) 12.3 % Eosinophils (%) (Auto) 1.5 % Basophils (%) (Auto) 0.4 % Neutrophils # (Auto) 4.91 K/uL Lymphocytes # (Auto) 1.91 K/uL Monocytes # (Auto) 0.98 K/uL Eosinophils # (Auto) 0.12 K/uL Basophils # (Auto) 0.03 K/uL RDW Standard Deviation 48.2 fL RDW Coefficient of Variation 14.3 % Immature Granulocyte % (Auto) 0.3 % Immature Granulocyte # (Auto) 0.02 K/uL Prothrombin Time 10.7 SECONDS Prothromb Time International Ratio 1.0 Activated Partial Thromboplast Time 25.5 SECONDS 84.4 SECONDS Partial Thromboplastin Ratio 1.0 3.2 Sodium Level 140 mmol/L Potassium Level 3.7 mmol/L Chloride Level 107 mmol/L Carbon Dioxide Level 25 mmol/L Anion Gap 8.0 mmol/L Blood Urea Nitrogen 19 mg/dl Creatinine 0.87 mg/dl Est Creatinine Clear Calc Drug Dose 59.8 ml/min Estimated GFR () 75.5 Estimated GFR (Non- 65.2 BUN/Creatinine Ratio 21.7 Random Glucose 107 mg/dl Calcium Level 9.1 mg/dl Total Bilirubin 0.3 mg/dl Direct Bilirubin < 0.1 mg/dl Aspartate Amino Transf (AST/SGOT) 21 U/L Alanine Aminotransferase (ALT/SGPT) 28 U/L Alkaline Phosphatase 52 U/L Total Creatine Kinase 92 U/L Creatine Kinase MB 0.8 ng/ml Creatine Kinase MB Ratio 0.9 Total Protein 7.1 gm/dl Albumin 3.8 gm/dl Bedside D-Dimer > 450 ng/mlFEU Bedside Troponin I < 0.030 ng/ml Urine Color YELLOW Urine Appearance CLEAR Urine pH 5.0 Urine Specific [place] > 1.045 Urine Protein NEG Urine Glucose (UA) NEG Urine Ketones 1+ Urine Occult Blood TRACE Urine Nitrite NEG Urine Bilirubin NEG Urine Urobilinogen NEG Urine Leukocyte Esterase NEG Urine WBC (Auto) 1-5 /hpf Urine RBC (Auto) 0-4 /hpf Urine Hyaline Casts (Auto) 5-10 /lpf Urine Epithelial Cells (Auto) >30 /lpf Urine Bacteria (Auto) NEG Urine Crystals CALCIUM OXALATE Test 10/16/16 05:38 10/16/16 10:45 White Blood Count 7.98 K/uL Red Blood Count 4.37 M/uL Hemoglobin 13.2 g/dL Hematocrit 39.8 % Mean Corpuscular Volume 91.1 fL Mean Corpuscular Hemoglobin 30.2 pg Mean Corpuscular Hemoglobin Concent 33.2 g/dl Platelet Count 169 K/uL Mean Platelet Volume 9.7 fL Neutrophils (%) (Auto) 73.8 % Lymphocytes (%) (Auto) 14.5 % Monocytes (%) (Auto) 11.4 % Eosinophils (%) (Auto) 0.1 % Basophils (%) (Auto) 0.1 % Neutrophils # (Auto) 5.88 K/uL Lymphocytes # (Auto) 1.16 K/uL Monocytes # (Auto) 0.91 K/uL Eosinophils # (Auto) 0.01 K/uL Basophils # (Auto) 0.01 K/uL RDW Standard Deviation 47.7 fL RDW Coefficient of Variation 14.1 % Immature Granulocyte % (Auto) 0.1 % Immature Granulocyte # (Auto) 0.01 K/uL Sodium Level 140 mmol/L Potassium Level 4.1 mmol/L Chloride Level 108 mmol/L Carbon Dioxide Level 29 mmol/L Anion Gap 3.0 mmol/L Blood Urea Nitrogen 14 mg/dl Creatinine 0.79 mg/dl Est Creatinine Clear Calc Drug Dose 67.3 ml/min Estimated GFR () 84.9 Estimated GFR (Non- 73.2 BUN/Creatinine Ratio 17.1 Random Glucose 126 mg/dl Calcium Level 8.1 mg/dl Total Bilirubin 0.6 mg/dl Aspartate Amino Transf (AST/SGOT) 13 U/L Alanine Aminotransferase (ALT/SGPT) 22 U/L Alkaline Phosphatase 44 U/L Total Protein 6.0 gm/dl Albumin 3.0 gm/dl Globulin 3.0 gm/dl Albumin/Globulin Ratio 1.0 Activated Partial Thromboplast Time 74.1 SECONDS Partial Thromboplastin Ratio 2.8 Assessment and Plan 76-year-old female with a past medical history of hypertension, hyperlipidemia, fibromyalgia, atrial fibrillation , factor V Leiden mutation presented to ER with complaints of chest pain that started about 45 minutes prior to arrival. Pleuritic chest pain secondary to pulmonary emboli/ history of factor V Leiden heterozygous mutation - PE are submassive, unprovoked - heparin gtt, will change to Lovenox tonight, start Coumadin 5mg daily today - no DVT in either lower extremity - no right heart strain on echo - plan to d/c home tomorrow on Lovenox and Coumadin, will need 6 months minimum anticoagulation - transfer to medical floor Hypertension: - Continue lisinopril Hyperlipidemia: - Continue Zocor Atrial fibrillation: -Continue rate control with metoprolol - She was not on any anticoagulation at presentation. - CHA2D2- Vasc score of 6, annual stroke risk of 9.7% - will now be on Coumadin, need to discuss with PCP going forward Fibromyalgia: - Continue Savella DVT prophylaxis: - Heparin IV Full code plan to d/c home tomorrow
[2016-10-16] MEDS ORDERED: WARFARIN SOD 5 MG TAB PO SCH (16:00)
[2016-10-16 18:26] LABS: PARTIAL THROMBOPLASTIN RATIO 2.9
[2016-10-16] MEDS: ENOXAPARIN 100 MG/1ML SYR SQ SCH (20:36)
[2016-10-16] MEDS ORDERED: SIMVASTATIN 40 MG TAB PO SCH (21:00)
[2016-10-16] MEDS: DYMISTA~ORDER AWAITING ACTION SCH (23:31)
--- NOTE | 2016-10-17 05:52 | Clinical Documentation Query ---
CLINICAL DOCUMENTATION QUERY 76-y/o female with factor V Leiden mutation who presents with submassive PE. In your clinical opinion is this patient being managed for: ( x ) PE DUE TO factor V Leiden mutation requiring anticoagulation ( ) Not Agree Please clarify and document your clinical opinion in the progress notes and discharge summary. Terms such as "probable", "suspected", "likely", "questionable", "possible", or "still to be ruled out" are acceptable. IF IN AGREEMENT, YOU MUST DOCUMENT ABOVE DIAGNOSTIC STATEMENT IN DAILY PROGRESS NOTES AND DISCHARGE SUMMARY. This document is not part of the patient's record. Thank You, Jan Slater, RN [phone]
[2016-10-17 06:09] LABS: BASO % 0.5 %; BASO ABS # 0.02 K/uL (0-0.2); COMPLETE YES; HEMATOCRIT 39.8 % (37-47); LYMPH ABS # 1.73 K/uL (1.2-3.4); MEAN CELL VOLUME 91.7 fL (80-100); MEAN CORPUSCULAR HEMOGLOBIN 29.5 pg (25-34); MEAN CORPUSCULAR HGB CONC 32.2 g/dl (32-36); MEAN PLATELET VOLUME 9.8 fL (7.4-10.4); NEUT % 39.5 %; PLATELET COUNT 163 K/uL (130-400); RED BLOOD COUNT 4.34 M/uL (4.2-5.4); WHITE BLOOD COUNT 3.93 K/uL (4.8-10.8)
[2016-10-17 06:40] LABS: BUN/CREATININE RATIO 14.9 (10-20); CALCIUM 8.3 mg/dl (8.5-10.1); CREATININE 0.72 mg/dl (0.60-1.20); POTASSIUM 4.1 mmol/L (3.5-5.1)
[2016-10-17 06:43] LABS: ALB/GLOB RATIO 0.9 (0.9-2)
[2016-10-17 07:16] VITALS: BP 110/72; PULSE 77; TEMP 36.8; O2SAT 93
[2016-10-17 08:30] VITALS: O2SAT 93
[2016-10-17] MEDS: ACYCLOVIR 400 MG TAB PO SCH (08:50)
[2016-10-17] MEDS: METOPROLOL SUCC 25MG EXT REL TAB PO SCH (08:51)
[2016-10-17] MEDS: ASPIRIN 81 MG ECTAB PO SCH (08:51)
[2016-10-17] MEDS: LISINOPRIL 10 MG TAB PO SCH (08:51)
[2016-10-17] MEDS: ENOXAPARIN 100 MG/1ML SYR SQ SCH (08:52)
[2016-10-17] MEDS: DYMISTA~ORDER AWAITING ACTION SCH (08:54)
[2016-10-17] MEDS ORDERED: LVNIS100 SQ (10:18)
[2016-10-17] MEDS ORDERED: CMD5 PO (10:18)
[2016-10-17] MEDS ORDERED: TCMD1 PO (10:18)
--- NOTE | 2016-10-17 10:25 | Discharge Instructions ---
Discharge Instructions Date of Service Oct 17, 2016. Admission Reason for Admission: Pulmonary Embolism Discharge Discharge Diagnosis / Problem: (1) Pulmonary emboli VTE Date & Time Date of VTE Diagnosis: Oct 17, 2016 Time of VTE Diagnosis: 18:55 Discharge Goals Goal(s): Improve function, Improve disease control Activity Recommendations Activity Limitations: resume your previous activity Lifting Limitations: none Exercise/Sports Limitations: as tolerated May Resume Sexual Activity: when tolerated Shower/Bathe: no limitations Driving or Machine Use: no limitations . Instructions / Follow-Up Instructions / Follow-Up Medications: - LOVENOX: twice a day for 10 doses, first dose due tonight, you received a dose this morning this is absolutely necessary to take because it provided anticoagulation while the Coumadin is taking effect - COUMADIN: start at 5mg a day for now, will give you 1mg tablets that you can use as directed by outpatient provider will check INR starting tomorrow, then again on Saturday and Saturday, you can go to Dr. Wallis's office for blood work Pulmonary embolism: as discussed, with was submassive, vitals stable, chest pain and dyspnea should improve over next week you will need anticoagulation with Coumadin for at least 6 months no evidence of DVT in legs FOLLOW UP - Dr. Wallis in one week - INR draws tomorrow, Saturday and Saturday with Dr. Wallis Medication Instructions: * Warfarin is a medicine prescribed to prevent blood clots * Warfarin will thin your blood and help prevent new clots * Take your medications exactly as directed * Never skip a dose. Never take a double dose. If you miss a dose, take it as soon as you remember * It is important for your doctor to monitor your prothrombin time (PT). This is a lab test * Keep your appointment for lab tests Risk of Adverse Drug Reactions and Interactions: * Warfarin increases your risk of bleeding * The food you eat and other medications you take can affect how Warfarin works in your body * Ask your doctor about daily aspirin therapy * It is very important to talk with your doctor about all of the other medicines , antibiotics, vitamins or herbal products that you are taking * All of your medication must be approved by your doctor, including new medicines, as well as medicines you have taken before you started taking Warfarin Diet: * In order for Warfarin to work properly, it is important to keep your intake of Vitamin K as consistent as possible * You should avoid any sudden change in Vitamin K intake * Report any significant changes in your diet or weight to your doctor Call your Primary Care doctor if you experience any of the following: * Swelling or Pain in your leg * Sudden, continuous pain deep in a muscle * Pain that worsens when you are active or when you stand still for a long time * Chest Pain * Sudden Shortness of Breath * Rapid or pounding heart beat * Fainting * Dizziness * Cough with blood or bloody sputum * Sweating more than normal * Bruises * Heavy or uncontrolled bleeding * Blood in your urine, stool or vomit * Black or tarry stools Caring for Your Self at Home: * Avoid sitting, standing or lying down for long periods without moving your legs and feet * When traveling by car, stop to get out and move around at least once every 3 hours * On long airplane, train or bus rides, get up and move around when possible * If you can't get up, wiggle your toes and tighten your calves to keep your blood moving Follow Up: It is important for you to keep your follow up appointments with your medical provider. Current Hospital Diet Patient's current hospital diet: Regular Diet Discharge Diet Recommended Diet: Regular Diet Pending Studies Studies pending at discharge: no Medical Emergencies . Who to Call and When: Medical Emergencies: If at any time you feel your situation is an emergency, please call 911 immediately. . Non-Emergent Contact Non-Emergency issues call your: Primary Care Provider Call Non-Emergent contact if: you have any medication questions . . "Provider Documentation" section prepared by Bryant Salazar. . VTE Core Measure Inpt VTE Proph given/why not?: Unfractionated heparin SQ Reason no anticoag overlap I/P: Treatment provided - N/A Reason no anticoag overlap @DC: Treatment provided - N/A [place] Drug Monitoring Program Search Results: no issues identified
--- NOTE | 2016-10-17 12:58 | Medical Student: [facility] ---
Med Student Progress Note Date of Service Oct 17, 2016. Subjective Pt evaluation today including: conversation w/ patient, physical exam, chart review, lab review, review of studies Voiding: no voiding problems Ms. Emma Renteria is a 76-year-old female with a past medical history of hypertension, hyperlipidemia, fibromyalgia, atrial fibrillation , factor V Leiden heterozygous mutation who was admitted for pulmonary emboli on 10/15/16. She denies any recent surgery or long distance travel. She does report that her job involves sitting at a desk. Hospital Day 2: No acute events overnight. She received her first dose of Lovenox SQ today. She denies any shortness of breath. She has mild chest pain 2 /10 with inspiration, which improves with PRN Tylenol po. She was able to eat breakfast. She has not yet ambulated today. She understands the plan for a Lovenox bridge for 5 days until Coumadin reaches its therapeutic level. She understands that she should report for labwork on , Saturday,and Saturday. Review of Systems Constitutional: No fever, No weight loss Eyes: No worsening of vision, No redness ENT: No nasal symptoms, No sore throat Respiratory: No cough, No wheezing, No shortness of breath Cardiac: + chest pain (2/10 ), No palpitations Abdomen: No pain, No nausea, No vomiting, No diarrhea, No constipation Musculoskeletal: No muscle pain, No calf pain Female : No dysuria, No hematuria Neurologic: No memory loss, No weakness, No numbness/tingling Psychiatric: No anxiety, No insomnia Heme: No clotting problems Endo: No excessive thirst, No excessive urination Skin: No rash, No itch Objective Vital Signs Date Time Temp Pulse Resp B/P (MAP) Pulse Ox O2 Delivery O2 Flow Rate FiO2 10/17/16 07:16 36.8 77 18 110/72 (85) 93 Room Air 10/17/16 00:00 Room Air 10/16/16 23:50 36.8 79 18 102/64 (77) 92 Room Air 10/16/16 17:05 36.7 75 16 139/80 (99) 97 Room Air 10/16/16 16:38 36.9 72 18 97 3.0 10/16/16 16:00 97 Room Air 10/16/16 15:02 36.9 72 18 118/81 (93) 97 Room Air 10/16/16 12:00 Room Air 10/16/16 11:40 36.6 56 18 123/82 (96) 93 Room Air Physical Exam General Appearance: WD/WN, no apparent distress Eyes: bilateral eyes normal inspection ENT: normal ENT inspection, hearing grossly normal Neck: supple, no adenopathy, thyroid normal, trachea midline Respiratory/Chest: chest non-tender, lungs clear, normal breath sounds, no respiratory distress, no accessory muscle use Cardiovascular: regular rate, rhythm, no edema, no gallop, no murmur Abdomen: normal bowel sounds, non tender, soft, no organomegaly, no pulsatile mass Extremities: non-tender, normal inspection, no pedal edema, no calf tenderness Neurologic/Psychiatric: no motor/sensory deficits, alert, normal mood/affect, oriented x 3 Skin: normal color, warm/dry, no rash, + pertinent finding (ecchymosis on left arm ) Lymphatic: no adenopathy Laboratory Results Last 24 Hours Test 10/16/16 10:45 10/16/16 17:54 10/17/16 05:59 Activated Partial Thromboplast Time 74.1 SECONDS 75.9 SECONDS Partial Thromboplastin Ratio 2.8 2.9 White Blood Count 3.93 K/uL Red Blood Count 4.34 M/uL Hemoglobin 12.8 g/dL Hematocrit 39.8 % Mean Corpuscular Volume 91.7 fL Mean Corpuscular Hemoglobin 29.5 pg Mean Corpuscular Hemoglobin Concent 32.2 g/dl Platelet Count 163 K/uL Mean Platelet Volume 9.8 fL Neutrophils (%) (Auto) 39.5 % Lymphocytes (%) (Auto) 44.0 % Monocytes (%) (Auto) 14.0 % Eosinophils (%) (Auto) 2.0 % Basophils (%) (Auto) 0.5 % Neutrophils # (Auto) 1.55 K/uL Lymphocytes # (Auto) 1.73 K/uL Monocytes # (Auto) 0.55 K/uL Eosinophils # (Auto) 0.08 K/uL Basophils # (Auto) 0.02 K/uL RDW Standard Deviation 48.3 fL RDW Coefficient of Variation 14.2 % Immature Granulocyte % (Auto) 0.0 % Immature Granulocyte # (Auto) 0.00 K/uL Sodium Level 142 mmol/L Potassium Level 4.1 mmol/L Chloride Level 111 mmol/L Carbon Dioxide Level 29 mmol/L Anion Gap 2.0 mmol/L Blood Urea Nitrogen 11 mg/dl Creatinine 0.72 mg/dl Est Creatinine Clear Calc Drug Dose 73.9 ml/min Estimated GFR () 94.9 Estimated GFR (Non- 81.9 BUN/Creatinine Ratio 14.9 Random Glucose 97 mg/dl Calcium Level 8.3 mg/dl Total Bilirubin 0.4 mg/dl Aspartate Amino Transf (AST/SGOT) 16 U/L Alanine Aminotransferase (ALT/SGPT) 22 U/L Alkaline Phosphatase 40 U/L Total Protein 5.7 gm/dl Albumin 2.7 gm/dl Globulin 3.0 gm/dl Albumin/Globulin Ratio 0.9 Medications MEDICATIONS FOR DISCHARGE Medications Dose Route/Sig Max Daily Dose Days Date Category Coumadin (Warfarin Sod) 1 Mg Tab 1 Tab PO UD 30 10/17/16 Rx Coumadin (Warfarin Sod) 5 Mg Tab 5 Mg PO DAILY@16 10/17/16 Rx Enoxaparin Sodium (Enoxaparin) 100 Mg/Ml Inj 90 Mg SQ Q12 5 10/17/16 Rx Flonase Allergy Relief (Fluticasone Propionate (Nasal)) 50 Mcg/Act Spr 2 Sprays FARZANEH DAILY PRN 10/15/16 Reported [place]-3 (Fish Oil) 1 Ea Cap 1 Cap PO DAILY 10/15/16 Reported Savella (Milnacipran Hcl) 50 Mg Tab 100 Mg PO HS 10/15/16 Reported Savella (Milnacipran Hcl) 50 Mg Tab 50 Mg PO QAM 10/15/16 Reported Toprol-Xl (Metoprolol Succinate) 25 Mg Tabcr 25 Mg PO DAILY 10/15/16 Reported Mobic (Meloxicam) 15 Mg Tab 15 Mg PO DAILY PRN 10/15/16 Reported Prinivil (Lisinopril) 10 Mg Tab 10 Mg PO DAILY 10/15/16 Reported Caltrate 600+D (Calcium Carbonate-Cholecalcife) 1 Tab Tab 1 Tab PO DAILY 10/15/16 Reported Dymista (Azelastine Hcl-Fluticasone Pro) 1 Spr Spr 1 [place] FARZANEH BID 10/15/16 Reported Aspirin Ec (Aspirin) 81 Mg Tab 81 Mg PO DAILY 10/15/16 Reported Allergy Relief 24Hr (Fexofenadine HCl) 180 Mg Tab 180 Mg PO DAILY PRN 10/15/16 Reported Acyclovir 400 Mg Tab 400 Mg PO DAILY 10/15/16 Reported Zocor (Simvastatin) 40 Mg Tab 40 Mg PO QPM 09/24/10 Reported Assessment and Plan Assessment and Plan: ASSESSMENT: Ms. Emma Renteria is a 76-year-old female with a past medical history of hypertension, hyperlipidemia, fibromyalgia, atrial fibrillation , factor V Leiden heterozygous mutation who was admitted for pulmonary emboli on 10/15/16. She denies any recent surgery or long distance travel. She does report that her job involves sitting at a desk. Her vitals remained stable overnight. PLAN: Pulmonary emboli in the setting of factor V Leiden heterozygous mutation CTA chest positive for pulmonary emboli within right lower lobe and right middle lobe Small pulmonary infarction of the lateral segment of right middle lobe Start Lovenox SQ 100mg q12h as bridge for 5 days Plan to start Coumadin for a 6 month course minimum for anticoagulation Pain control with morphine or Tylenol PRN No DVT in either lower extremity Echo 10/16/16- no right heart strain Hypertension: Continue lisinopril Hyperlipidemia: Continue Zocor Atrial fibrillation: Continue rate control with metoprolol CHA2D2- Vasc score of 6, annual stroke risk of 9.7% Continue on Lovenox and Coumadin, will need 6 months minimum anticoagulation Fibromyalgia: Continue Savella DVT prophylaxis: Lovenox bridge to Coumadin Code: Full code Disposition: Discharge
[2016-10-17 13:17] VITALS: BP 110/72; PULSE 77; TEMP 36.8; O2SAT 93
--- NOTE | 2016-10-18 08:02 | Discharge Summary ---
Discharge Summary Date of Service Oct 18, 2016. Discharge Summary Admission Date: Oct 15, 2016 at 22:56 Discharge Date: Oct 17, 2016 Discharge Disposition: Home Principal Diagnosis: Pulmonary emboli due to Factor V Leiden mutation Problems/Secondary Diagnoses: Chest pain Immunizations: Have You Had Influenza Vaccine: Unknown History of Tetanus Vaccine?: Unknown History of Pneumococcal: Unknown History of Hepatitis B Vaccine: Unknown Procedures: Echocardiogram Consultations: none Medication Reconciliation New Medications: Warfarin Sod (Coumadin) 1 Mg Tab 1 TAB PO UD for 30 Days, #60 TABS 1 Refill Enoxaparin (Enoxaparin Sodium) 100 Mg/Ml Inj 90 MG SQ Q12 for 5 Days, #10 DOSE 0 Refills Warfarin Sod (Coumadin) 5 Mg Tab 5 MG PO DAILY@16, #30 TAB 1 Refill Continued Medications: Acyclovir (Acyclovir) 400 Mg Tab 400 MG PO DAILY Aspirin (Aspirin Ec) 81 Mg Tab 81 MG PO DAILY Azelastine Hcl-Fluticasone Pro (Dymista) 1 Spr Spr 1 SPRY FARZANEH BID Calcium Carbonate-Cholecalcife (Caltrate 600+D) 1 Tab Tab 1 TAB PO DAILY Fexofenadine HCl (Allergy Relief 24Hr) 180 Mg Tab 180 MG PO DAILY PRN for ALLERGIC REACTION Fish Oil ([place]-3) 1 Ea Cap 1 CAP PO DAILY, CAP Fluticasone Propionate (Nasal) (Flonase Allergy Relief) 50 Mcg/Act Spr 2 SPRAYS FARZANEH DAILY PRN for ALLERGIC REACTION Lisinopril (Prinivil) 10 Mg Tab 10 MG PO DAILY Meloxicam (Mobic) 15 Mg Tab 15 MG PO DAILY PRN for Pain Metoprolol Succ (Toprol Xl) (Toprol-Xl) 25 Mg Tabcr 25 MG PO DAILY Milnacipran Hcl (Savella) 50 Mg Tab 50 MG PO QAM Milnacipran Hcl (Savella) 50 Mg Tab 100 MG PO HS Simvastatin (Zocor) 40 Mg Tab 40 MG PO QPM Discharge Exam Patient doing well morning of discharge, minimal chest pain, no dyspnea. Went over plans for discharge in detail, including Lovenox twice a day for 5 days and Coumadin and checking INR 6/7, 6/8 and 6/10. She understood the plan and importance of compliance. Said she would follow up closely with Dr. Wallis. Review of Systems: Constitutional: No fever, No chills, No sweats, No weight loss, No weakness , No fatigue, No problem reported Eyes: No worsening of vision, No eye pain, No redness, No discharge, No diplopia, No problem reported ENT: No hearing loss, No unusual epistaxis, No nasal symptoms, No sore throat, No tinnitus, No dental problems, No trouble swallowing, No problem reported Respiratory: No cough, No sputum, No wheezing, No shortness of breath, No dyspnea on exertion, No dyspnea at rest, No hemoptysis, No problem reported Cardiovascular: + chest pain (right sided, minimal), No orthopnea, No PND, No edema, No claudication, No palpitations, No problem reported Abdomen: No pain, No nausea, No vomiting, No diarrhea, No constipation, No GI bleeding, No problem reported Musculoskeletal: No joint pain, No muscle pain, No swelling, No calf pain, No problem reported Genitourinary - Female: No dysuria, No urinary frequency, No urinary urgency , No urinary incontinence, No urinary retention Neurologic: No memory loss, No paralysis, No weakness, No numbness/tingling , No vertigo, No balance problems, No problem reported Psychiatric: No depression symptoms, No anhedonism, No anxiety, No insomnia , No substance abuse, No problem reported Endocrine: No fatigue, No excessive thirst, No excessive urination, No problem reported Hematologic / Lymphatic: No abnormal bleeding/bruising, No clotting problems , No swollen lymph nodes, No night sweats, No problem reported Integumentary: No rash, No itch, No new/changing skin lesions, No color change, No bleeding, No problem reported Physical Exam: General Appearance: WD/WN, no apparent distress Eyes: normal inspection, EOMI, sclerae normal ENT: normal ENT inspection, hearing grossly normal, pharynx normal Neck: supple, no adenopathy, no JVD, trachea midline Respiratory/Chest: chest non-tender, lungs clear, normal breath sounds, no respiratory distress, no accessory muscle use Cardiovascular: regular rate, rhythm, no edema, no gallop, no JVD, no murmur , normal peripheral pulses Abdomen / GI: normal bowel sounds, non tender, soft, no organomegaly Extremities: normal inspection, no calf tenderness, normal capillary refill , no pedal edema, normal range of motion, pelvis stable Neurologic/Psychiatric: animal killer II-XII nml as tested, no motor/sensory deficits , alert, normal mood/affect, normal reflexes, oriented x 3 Skin: normal color, warm/dry, no rash Hospital Course 76-year-old female with a past medical history of hypertension, hyperlipidemia, fibromyalgia, atrial fibrillation , factor V Leiden mutation presented to ER with complaints of chest pain that started about 45 minutes prior to arrival. Pulmonary emboli secondary to Factor V Leiden mutation - PE are submassive, unprovoked - initially treated with heparin gtt, changed to Lovenox 90 q12 and Coumadin 5mg started on 10/16 - no DVT in either lower extremity - no right heart strain on echo - d/c home on Lovenox for 5 days, Coumadin 5mg daily initially, check INR on 10/18, 10/19 and 10/[address] Wallis's office - will go to coag clinic on 10/22 Hypertension: - Continue lisinopril Hyperlipidemia: - Continue Zocor Atrial fibrillation: -Continue rate control with metoprolol - She was not on any anticoagulation at presentation. - CHA2D2- Vasc score of 6, annual stroke risk of 9.7% - will now be on Coumadin Fibromyalgia: - Continue Savella DVT prophylaxis: - Heparin IV Full code d/c home Total Time Spent: Greater than 30 minutes This includes examination of the patient, discharge planning, medication reconciliation, and communication with other providers. Discharge Instructions Please refer to the electronic Patient Visit Report (Discharge Instructions) for additional information. Follow-Up Dr. Wallis in one week Coag clinic on 10/22 Additional Copies To Francisco Wallis M.D.; Lizzette Castillo M.D., PHD
[2016-10-29] MEDS ORDERED: CMD5 PO (13:59)
[2016-10-29] MEDS ORDERED: TCMD1 PO (13:59)
[2016-11-16] MEDS ORDERED: WARF5TAB7 PO (10:29)
[2016-11-16] MEDS ORDERED: WARF-246 PO (10:29)
[2016-11-16] MEDS ORDERED: ACET-1311 PO (10:29)
== END 2016-10-17 12:45 | disposition home or self-care (01) | DRG 814 ==
LOC: C.EDB 18:42 → C.2T 22:56 → ENRESERV 23:07 → C.4E 10-16 16:57
PROVIDERS: ADMIT Family Medicine; ATTEND Internal Medicine
DX: D68.51 Activated protein C resistance (principal); I26.99 Other pulmonary embolism without acute cor pulmonale; I48.91 Unspecified atrial fibrillation; I10 Essential (primary) hypertension; E78.5 Hyperlipidemia, unspecified; M79.7 Fibromyalgia; Z79.82 Long term (current) use of aspirin; Z79.899 Other long term (current) drug therapy

== ENCOUNTER → 2017-04-05 | Outpatient (CLI) | payer OTHER, MEDICARE ==
[~2017-04-05] MED LIST changes: +ACET-1311 PO; +ACYC400T PO; -ASPEC81 PO; +AZEL30SP NAE; +CALC-354 PO; -CLTP PO; +FEXO-152 PO; +FLUT0.15 NAE; +GING1CAP PO; -LISI-729 PO; +LISI10TA PO; +METO25TA3 PO; +MILN50TA PO; -MULT-513 PO; +OMEG10007 PO; +WARF-246 PO; -[UNRECOGNIZED DRUG - OTHER] PO
[2017-04-05 17:04] LABS: ALBUMIN 3.9 gm/dl (3.4-5.0); ALT/SGPT 25 U/L (12-78); BLOOD UREA NITROGEN 15 mg/dl (7-18); CALCIUM 9.1 mg/dl (8.5-10.1); CARBON DIOXIDE 29 mmol/L (21-32); CHOLESTEROL 194 mg/dl (0-200); CREATININE 1.01 mg/dl (0.60-1.20); GLUCOSE 86 mg/dl (70-99); POTASSIUM 3.8 mmol/L (3.5-5.1); SODIUM 139 mmol/L (136-145)
[2017-04-05 17:10] LABS: BASO % 0.6 %; BASO ABS # 0.03 K/uL (0-0.2); EOS % 1.8 %; EOS ABS # 0.09 K/uL (0-0.5); HEMATOCRIT 45.4 % (37-47); HEMOGLOBIN 14.9 g/dL (12.0-16.0); IG# 0.01 K/uL (0.00-0.02); LYMPH % 34.9 %; LYMPH ABS # 1.75 K/uL (1.2-3.4); MEAN CELL VOLUME 92.3 fL (80-100); MEAN CORPUSCULAR HEMOGLOBIN 30.3 pg (25-34); MEAN CORPUSCULAR HGB CONC 32.8 g/dl (32-36); MEAN PLATELET VOLUME 10.6 fL (7.4-10.4); MONO % 11.8 %; MONO ABS # 0.59 K/uL (0.11-0.59); NEUT % 50.7 %; NEUT ABS # 2.55 K/uL (1.4-6.5); PLATELET COUNT 201 K/uL (130-400); RED CELL DISTRIBUTION WIDTH CV 14.2 % (11.5-14.5); RED CELL DISTRIBUTION WIDTH SD 48.2 fL (36.4-46.3); WHITE BLOOD COUNT 5.02 K/uL (4.8-10.8)
[2017-04-05 17:15] LABS: ALKALINE PHOSPHATASE 45 U/L (45-117); AST/SGOT 18 U/L (15-37); LDL CHOLESTEROL CALCULATED 99 mg/dl
== END | disposition home or self-care (01) ==
LOC: C.LABBC 14:00
PROVIDERS: ATTEND Internal Medicine
DX: E78.5 Hyperlipidemia, unspecified (principal); I10 Essential (primary) hypertension; G47.33 Obstructive sleep apnea (adult) (pediatric); I48.0 Paroxysmal atrial fibrillation; I26.99 Other pulmonary embolism without acute cor pulmonale; G89.4 Chronic pain syndrome; D68.51 Activated protein C resistance

== ENCOUNTER → 2017-09-30 | Day surgery (SDC) | payer OTHER, MEDICARE ==
[2017-09-24 15:18] VITALS: Ht 160 cm; Wt 90.9 kg
[~2017-09-30] VITALS: Ht 160 cm; Wt 90.9 kg
[~2017-09-30] MED LIST changes: -ACET-1311 PO; +ALBUAER INH; +ENOX40IN SQ; +ESZO1TAB18 PO; -GING1CAP PO; +NYST100033; +PROPOFOL IV EMULSION 10 MG/ML 20 ML VIAL ONE; +SODIUM CHLORIDE 0.9% 500ML 500 ML IV ONE
--- NOTE | 2017-09-30 11:33 | Endo History and Physical ---
History & Physical Date of Service: Sep 30, 2017. Chief Complaint: Family history of colon cancer Referring Physician: Francisco Sarmiento History of Present Illness 77 yo CF who presents for colonoscopy secondary to family history of colon cancer. Past Surgical History Hx Cardiac Surgery: No Hx Internal Defibrillator: No Hx Pacemaker: No Hx Abdominal Surgery: Yes (TUBAL LIGATION) Hx of Implantable Prosthesis: No Hx Post-Op Nausea and Vomiting: Yes Hx Cancer Surgery: No Hx Thoracic Surgery: No Hx Orthopedic: Yes (foot surgery ) Hx Urinary Tract Surgery: No Family History Colon CA Social History Smoking Status: Never Smoker Hx Substance Use: No Hx Alcohol Use: No Allergies Coded Allergies: Adhesives (Verified Allergy, Mild, TAPE, 09/24/17) Codeine (Verified Allergy, Mild, `, 09/24/17) Azithromycin (Verified Allergy, Unknown, UNKNOWN, 09/24/17) CI Pigment Blue 63 (Verified Allergy, Unknown, UNKNOWN, 09/24/17) Celecoxib (Verified Allergy, Unknown, UNKNOWN, 09/24/17) Duloxetine (Verified Allergy, Unknown, UNKNOWN, 09/24/17) Fluoxetine (Verified Allergy, Unknown, UNKNOWN, 09/24/17) Pregabalin (Verified Allergy, Unknown, UNKNOWN, 09/24/17) Tramadol (Verified Allergy, Unknown, UNKNOWN, 09/24/17) Venlafaxine (Verified Allergy, Unknown, UNKNOWN, 09/24/17) Amoxicillin (Verified Adverse Reaction, Intermediate, DIARRHEA, 09/24/17) Clavulanic Acid (Verified Adverse Reaction, Intermediate, DIARRHEA, ) Current Medications Reported Home Medications Medications Dose Route/Sig Max Daily Dose Days Date Category Proventil Hfa (Albuterol Sulfate) 108 Mcg/Act Aer 1-2 Puffs INH Q4 PRN 07/18/17 Reported Nystatin (Nystatin (Topical)) 100,000 Unit/Gm Pow DIRECTED 07/18/17 Reported Lunesta (Eszopiclone) 2 Mg Tab 2 Mg PO HS 07/18/17 Reported Warfarin Sodium 5 Mg Tab 5 Mg PO DAILY 90 11/16/16 Reported Flonase Allergy Relief (Fluticasone Propionate (Nasal)) 50 Mcg/Act Spr 2 Sprays FARZANEH DAILY PRN 10/15/16 Reported [place]-3 (Fish Oil) 1 Ea Cap 1 Cap PO DAILY 10/15/16 Reported Savella (Milnacipran Hcl) 50 Mg Tab 100 Mg PO HS 10/15/16 Reported Savella (Milnacipran Hcl) 50 Mg Tab 50 Mg PO QAM 10/15/16 Reported Toprol-Xl (Metoprolol Succinate) 25 Mg Tabcr 25 Mg PO DAILY 10/15/16 Reported Prinivil (Lisinopril) 10 Mg Tab 10 Mg PO DAILY 10/15/16 Reported Caltrate 600+D (Calcium Carbonate-Cholecalcife) 1 Tab Tab 1 Tab PO DAILY 10/15/16 Reported Dymista (Azelastine Hcl-Fluticasone Pro) 1 Spr Spr 1 [place] FARZANEH BID PRN 10/15/16 Reported Allergy Relief 24Hr (Fexofenadine HCl) 180 Mg Tab 180 Mg PO DAILY PRN 10/15/16 Reported Acyclovir 400 Mg Tab 400 Mg PO DAILY 10/15/16 Reported Zocor (Simvastatin) 40 Mg Tab 40 Mg PO QPM 09/24/10 Reported Vital Signs Weight (Kilograms): 90.91 Height (Feet): 5 Height (Inches): 3 Date Time Temp Pulse Resp B/P (MAP) Pulse Ox O2 Delivery O2 Flow Rate FiO2 09/30/17 11:17 36.3 84 18 152/98 (116) 97 Room Air Physical Exam General Appearance: WD/WN, no apparent distress Respiratory/Chest: Auscultation: breath sounds normal Cardiovascular: Heart Auscultation: RRR Abdomen: Bowel Sounds: normal Inspection & Palpation: soft, non-distended, no tenderness, guarding & rebound Assessment and Plan Assessment: 77 yo CF who presents for colonoscopy secondary to family history of colon cancer. Plan: Proceed with colonoscopy.
--- NOTE | 2017-09-30 12:28 | Discharge Instructions ---
Endoscopy Patient Instructions Date / Procedure(s) Performed Sep 30, 2017. Colonoscopy Allergy Information Coded Allergies: Adhesives (Verified Allergy, Mild, TAPE, 09/30/17) Codeine (Verified Allergy, Mild, `, 09/30/17) Azithromycin (Verified Allergy, Unknown, UNKNOWN, 09/30/17) CI Pigment Blue 63 (Verified Allergy, Unknown, UNKNOWN, 09/30/17) Celecoxib (Verified Allergy, Unknown, UNKNOWN, 09/30/17) Duloxetine (Verified Allergy, Unknown, UNKNOWN, 09/30/17) Fluoxetine (Verified Allergy, Unknown, UNKNOWN, 09/30/17) Pregabalin (Verified Allergy, Unknown, UNKNOWN, 09/30/17) Tramadol (Verified Allergy, Unknown, UNKNOWN, 09/30/17) Venlafaxine (Verified Allergy, Unknown, UNKNOWN, 09/30/17) Amoxicillin (Verified Adverse Reaction, Intermediate, DIARRHEA, 09/30/17) Clavulanic Acid (Verified Adverse Reaction, Intermediate, DIARRHEA, ) Discharge Date / Findings Sep 30, 2017. Colon polyps Diverticulosis Internal hemorrhoids Medication Instructions OK to resume all medications today as prescribed Reported Home Medications Medications Dose Route/Sig Max Daily Dose Days Date Category Lovenox (Enoxaparin Sodium) 40 Mg/0.4 Ml Inj 40 Mg SQ DAILY 09/30/17 Reported Proventil Hfa (Albuterol Sulfate) 108 Mcg/Act Aer 1-2 Puffs INH Q4 PRN 07/18/17 Reported Nystatin (Nystatin (Topical)) 100,000 Unit/Gm Pow DIRECTED 07/18/17 Reported Lunesta (Eszopiclone) 2 Mg Tab 2 Mg PO HS 07/18/17 Reported Warfarin Sodium 5 Mg Tab 5 Mg PO DAILY 90 11/16/16 Reported Flonase Allergy Relief (Fluticasone Propionate (Nasal)) 50 Mcg/Act Spr 2 Sprays FARZANEH DAILY PRN 10/15/16 Reported Kaplan-3 (Fish Oil) 1 Ea Cap 1 Cap PO DAILY 10/15/16 Reported Savella (Milnacipran Hcl) 50 Mg Tab 100 Mg PO HS 10/15/16 Reported Savella (Milnacipran Hcl) 50 Mg Tab 50 Mg PO QAM 10/15/16 Reported Toprol-Xl (Metoprolol Succinate) 25 Mg Tabcr 25 Mg PO DAILY 10/15/16 Reported Prinivil (Lisinopril) 10 Mg Tab 10 Mg PO DAILY 10/15/16 Reported Caltrate 600+D (Calcium Carbonate-Cholecalcife) 1 Tab Tab 1 Tab PO DAILY 10/15/16 Reported Dymista (Azelastine Hcl-Fluticasone Pro) 1 Spr Spr 1 Cream [place] FARZANEH BID PRN 10/15/16 Reported Allergy Relief 24Hr (Fexofenadine HCl) 180 Mg Tab 180 Mg PO DAILY PRN 10/15/16 Reported Acyclovir 400 Mg Tab 400 Mg PO DAILY 10/15/16 Reported Zocor (Simvastatin) 40 Mg Tab 40 Mg PO QPM 09/24/10 Reported Provider Instructions Activity Restrictions - No exercising or heavy lifting for 24 hours. - Do not drink alcohol the day of the procedure. - Do not drive a car or operate machinery until the day after the procedure. - Do not make any important decisions or sign important papers in 24 hours after the procedure. Following Day: - Return to full activity which may include returning to work/school. Diet Start your diet with liquids and light foods (jello, soup, juice, toast). Then eat your usual diet if not nauseated. Treatment For Common After Affects For mild abdominal pain, bloating, or excessive gas: - Rest - Eat lightly - Lie on right side Follow-Up Information Follow-up with Francisco Sarmiento as scheduled Anesthesia Information What You Should Know You have had a procedure that required some medicine to reduce anxiety and discomfort. This treatment is called moderate sedation. After receiving the treatment, you may be sleepy, but you will be able to breathe on your own. The effects of the treatment may last for several hours. Follow these instructions along with Activity/Diet recommendations noted above: * Do NOT do anything where dizziness or clumsiness would be dangerous. * Rest quietly at home today, then you can be up and about tomorrow. * Have a responsible person stay with you the rest of today. * You may have had an I.V. today. If so, you may take the dressing off later today. Recommendations Call your doctor if: * Trouble breathing * Continuous vomiting for more than 24 hours * Temperature above 101 degrees * Severe abdominal pain or bloating * Pain not relieved by pain medicine ordered * There is increased drainage or redness from any incision * A large amount of rectal bleeding greater than 2-3 tablespoons. (If you had a polyp/s removed or have hemorrhoids, a small amount of blood - from the rectum is to be expected.) * You have any unanswered questions or concerns. IN THE EVENT OF A SERIOUS EMERGENCY, GO TO THE NEAREST EMERGENCY ROOM Your discharge instructions were prepared by provider Mj Beach. Patient Instructions Signature Page Emma Renteria Patient (or Guardian) Signature/Date: I have read and understand the instructions given to me by my caregivers. Caregiver/RN/Doctor Signature/Date: The above-named patient and/or guardian has received patient instructions on this date. + Original Patient Signature Page (only) stays with chart. Please make copy for patient.
[2017-09-30 12:57] VITALS: BP 121/98; PULSE 78; O2SAT 95
--- NOTE | 2017-09-30 12:57 | GI REPORT ---
Patient Name: Emma Renteria Procedure Date: 09/30/2017 11:43 AM Date of : 1940 Admit Type: Outpatient Age: 77 Gender: Female Attending MD: Mj Beach DO Procedure: Colonoscopy Providers: Mj Beach DO Referring MD: Francisco Wallis Indications: Family history of colon cancer in a first-degree relative Medicines: Monitored Anesthesia Care Complications: No immediate complications. Estimated Blood Loss: Estimated blood loss: none. Procedure: Pre-Anesthesia Assessment: - Prior to the procedure, a History and Physical was performed, and patient medications and allergies were reviewed. The patient's tolerance of previous anesthesia was also reviewed. The risks and benefits of the procedure and the sedation options and risks were discussed with the patient. All questions were answered, and informed consent was obtained. Prior Anticoagulants: The patient last took Coumadin (warfarin) 11 days and Lovenox (enoxaparin) 1 day prior to the procedure. ASA Grade Assessment: III - A patient with severe systemic disease. After reviewing the risks and benefits, the patient was deemed in satisfactory condition to undergo the procedure. After I obtained informed consent, the scope was passed under direct vision. Throughout the procedure, the patient's blood pressure, pulse, and oxygen saturations were monitored continuously. The scope was introduced through the anus and advanced to the terminal ileum. The colonoscopy was performed without difficulty. The patient tolerated the procedure well. The quality of the bowel preparation was good. The terminal ileum, ileocecal valve, appendiceal orifice, and rectum were photographed. Findings: The perianal and digital rectal examinations were normal. Two sessile polyps were found in the ascending colon. The polyps were 5 to 7 mm in size. These polyps were removed with a hot snare. Resection and retrieval were complete. An area of mild melanosis was found in the entire colon. Multiple small-mouthed diverticula were found in the sigmoid colon. Non-bleeding internal hemorrhoids were found during retroflexion. The hemorrhoids were small. Impression: - Two 5 to 7 mm polyps in the ascending colon, removed with a hot snare. Resected and retrieved. - Melanosis in the colon. - Diverticulosis in the sigmoid colon. - Non-bleeding internal hemorrhoids. Recommendation: - Resume previous diet. - Continue present medications. - Repeat colonoscopy for surveillance based on pathology results. - Return to primary care physician as previously scheduled. Mj LuciaDeep Yong, DO 09/30/2017 12:56:57 PM This report has been signed electronically. Note Initiated On: 09/30/2017 11:43 AM Number of Addenda: 0 I attest to the content of the Intraoperative Record and orders documented therein, exceptions below {[id number]}
--- NOTE | 2017-09-30 13:08 | Anesthesiology Progress Note ---
Anesthesia Post Op Note Date & Time Sep 30, 2017 at 13:08 Vital Signs Pain Intensity: 0 Vital Signs Past 12 Hours Date Time Temp Pulse Resp B/P (MAP) Pulse Ox O2 Delivery O2 Flow Rate FiO2 09/30/17 12:57 78 18 121/98 (106) 95 Room Air 09/30/17 12:41 77 16 119/85 (96) 95 Room Air 09/30/17 12:27 36.3 92 16 100/76 (84) 96 Room Air 09/30/17 11:17 36.3 84 18 152/98 (116) 97 Room Air Notes Mental Status: alert / awake / arousable, participated in evaluation Pt Amnestic to Procedure: Yes Nausea / Vomiting: adequately controlled Pain: adequately controlled Airway Patency, RR, SpO2: stable & adequate BP & HR: stable & adequate Hydration State: stable & adequate Anesthetic Complications: no major complications apparent
== END | disposition home or self-care (01) ==
LOC: C.GI 10:52
PROVIDERS: ATTEND Internal Medicine
DX: Z12.11 Encounter for screening for malignant neoplasm of colon (principal); D12.2 Benign neoplasm of ascending colon; K57.30 Diverticulosis of large intestine without perforation or abscess without bleeding; K64.8 Other hemorrhoids; I48.91 Unspecified atrial fibrillation; M19.90 Unspecified osteoarthritis, unspecified site; K21.9 Gastro-esophageal reflux disease without esophagitis; I10 Essential (primary) hypertension; Z86.711 Personal history of pulmonary embolism; Z80.0 Family history of malignant neoplasm of digestive organs

== ENCOUNTER 2022-06-25 10:07 | Observation (INO) ==
--- NOTE | 2022-06-25 11:03 | Emergency Department Note ---
Impression & Plan Cellulitis of foot, Syncope, Hypokalemia, Dehydration ED Provider Note NAME: AN ARCEO AGE: 82 SEX: F : 1940 ARRIVES VIA: Walk-In INFORMANT: Patient, ED PROVIDER(S): Derick Brewer MD CHIEF COMPLAINT: Fall, dizziness MEDICAL DECISION MAKING: Patient presents due to concern for fall and dizziness. The patient is on Coumadin. IV was established blood work was obtained. The patient did have a right hip and pelvis x-ray in addition to CT head and cervical spine. The patient was ordered some IV fluids as the patient has not been on torsemide. Patient was also concerned about her left second toe which does appear cellulitic in nature. The patient's blood count showed a normal white count H&H and platelet count. Kidney function is unremarkable. Mild elevation in bicarb but this may be secondary to diuretic losses. Potassium also low likely secondary to torsemide use. The patient was ordered some additional IV fluids that she was still feeling dizzy. Procalcitonin is not elevated. COVID-negative. Patient's hip and pelvis x-ray only shows degenerative changes. CT of the head is negative. CT cervical spine also negative. The patient was reassessed and after further discussion with the patient the patient's son at bedside it was determined that the patient did not fall hit her head and pass out but that the patient was lightheaded and dizzy while on the toilet had some gas pains and then passed out. Given this concern with a known history I did recommend that she stay in hospital. The patient was amenable to doing so. Patient was ordered doxycycline for the foot wound in addition to mupirocin. I did speak the on- call hospitalist service Darek Persaud PA-C and the patient was admitted by Dr. Alarcon. Prior /Outside records reviewed: None Differential diagnosis: Fracture, dislocation, contusion, cellulitis, abscess, pneumothorax, intrathoracic, intracranial, neurologic, compartment syndrome, rhabdomyolysis, as well as other pathologies. Diagnostics, as interpreted by me: ECG: Sinus with PVCs, rate 91, normal intervals normal axis no ST elevations. Slight depressions in the lateral leads Cardiac monitoring: An order was placed for continuous cardiac monitoring. The monitor shows a rate of 77 with sinus rhythm. Patient was placed on pulse oximetry Medical decision rules: None Imaging studies: See below I did review the patient's right hip and pelvis x-ray which showed no obvious fracture. HPI: Patient presents due to concern for recent fall and associated dizziness. The patient states that she fell down onto her right side and struck her head wi th positive LOC. The patient was up and ambulatory. The patient states that she fell to her knees and right side and struck the right side of her head. The patient does take Coumadin. Patient states that she has been on torsemide recently due to concern for bilateral lower extremity edema and the patient is lost 12 pounds since initiation. She was concerned that maybe the torsemide and the increased urination may be causing her dizziness. Patient denies any vomiting or diarrhea. The patient called the on-call today and was referred here for further evaluation treatment. Patient denies any head or neck pain. The patient was also concerned as she noticed an area of redness to her left second toe and was only started on antibiotics about 2 days ago. The patient is taking Keflex 300 3 times daily for the last 2 days. The patient does not believe that this is improved. Patient denies any other symptoms at this time PAST MEDICAL HISTORY: See Below PAST SURGICAL HISTORY: See Below SOCIAL HISTORY: See Below HOME MEDICATIONS: See Below ALLERGIES: See Below VITALS: See Below PHYSICAL EXAMINATION: GENERAL: NAD, wearing glasses non-toxic. EYE EXAM: Normal conjunctiva. PERRL, no anisocoria and EOM's grossly intact w/o pain. NECK: Supple, no nuchal rigidity, no adenopathy, non-tender. No signs of meningismus. FROM of the neck with good chin to chest and neck extension. No stridor. LUNGS: Clear to auscultation. Normal chest wall mechanics. Chest: No reproducible chest wall tenderness no bruising HEART: NSR, no MRG. ABDOMEN: Abdomen soft, no bruising, non-tender, no masses, no rebound or guarding. BACK: No CVA TTP. SKIN: No rashes and no bruising. UPPER EXTREMITIES: Abrasion noted to the right posterior shoulder, no bony point tenderness, good range of motion of the right upper extremity upper extremities are grossly normal. LOWER EXTREMITIES: Grossly normal, bilateral lower extremity edema without any calf pain or erythema, erythema noted to the second digit extending more proximally, no crepitus. Mild TTP. No active drainage or fluctuance NEURO EXAM: A&O x3, cranial nerves II-XII grossly intact, normal speech, moves all 4 extremities. Past Med/Surg History Medical History Actinic keratosis Acute dysfunction of both eustachian tubes Adverse anesthesia outcome NAUSEA / VOMITING Bilateral leg edema Cataracts, both eyes Chronic anticoagulation Chronic bilateral low back pain without sciatica Decreased hearing of left ear Has 4 children Insomnia Kidney cysts Left temporomandibular joint disorder, unspecified Lumbar radiculopathy Lymphedema Mixed hearing loss, bilateral Palpitations Paroxysmal atrial fibrillation Persistent cough Plantar fasciitis Pulmonary embolism Pulmonary embolism Scoliosis Sebaceous cyst Seborrheic dermatitis of scalp Shoulder pain, bilateral Surgical History History of tonsillectomy History of tubal ligation History of varicose vein ligation S/P cataract surgery S/P hemorrhoidectomy S/P wisdom tooth extraction Family History Father Prostate cancer Myocardial infarction Hearing loss Heart disease Stroke Brother Colon cancer Renal cancer Cancer Mother Pancreatic cancer Hypertension Cancer Diabetes Grandmother (Maternal) Hypertension Diabetes Grandfather (Maternal) Hypertension Uncle Heart disease Sister Cancer Diabetes Other Has 4 children No family history of adverse response to anesthesia No family history of bleeding disorder Denies family history of Ovarian cancer Breast cancer Lung cancer Social History Smoking Status: Never smoker Second Hand Exposure: No; Do You Dip or Chew Tobacco: No; Hx Alcohol Use: No Hx Substance Use: No Preferred Language: Syriac Communication Ability: Effective Visual Impairment: Limited Hearing Ability: Normal marital status: Current Living Situation: Alone current occupational status: retired How many Children do You have: 4 Feels Safe at Home: Yes Childhood Exposure to Second-Hand Smoke: No Diet: low carbohydrate and low salt caffeine: Yes Dental Care, Regularly: Yes Physical Activity Frequency: 1-2 Times per Week Physical Activity Frequency Comment: once a week does water aerobics Seatbelt Use: always Sunscreen Use: No (doesn't go in the sun) Do you think of yourself as: straight/heterosexual Allergies Allergies Allergy/AdvReac Type Severity Reaction Status Date / Time lisinopril Allergy Intermediate swollen Verified 06/25/22 15:20 upper lip Feb 2021, drug on hold adhesive Allergy Mild TAPE Verified 06/25/22 15:20 codeine Allergy Mild Unknown Verified 06/25/22 15:20 azithromycin Allergy Unknown Unknown Verified 06/25/22 15:20 blue dye Allergy Unknown UNKNOWN Verified 06/25/22 15:20 bupropion [From Wellbutrin] Allergy Unknown Unknown Verified 06/25/22 15:20 duloxetine Allergy Unknown UNKNOWN Verified 06/25/22 15:20 fluoxetine Allergy Unknown UNKNOWN Verified 06/25/22 15:20 oxycodone Allergy Unknown Unknown Verified 06/25/22 15:20 pregabalin Allergy Unknown UNKNOWN Verified 06/25/22 15:20 tramadol Allergy Unknown UNKNOWN Verified 06/25/22 15:20 venlafaxine Allergy Unknown UNKNOWN Verified 06/25/22 15:20 meloxicam AdvReac Severe FEET AND Verified 06/25/22 15:23 LOWER LEGS SWELLED amoxicillin AdvReac Intermediate DIARRHEA Verified 06/25/22 15:20 clavulanic acid AdvReac Intermediate DIARRHEA Verified 06/25/22 15:20 amlodipine AdvReac Mild dry mouth Verified 06/25/22 15:20 hydrochlorothiazide AdvReac Mild dry mouth Verified 06/25/22 15:20 celecoxib AdvReac Unknown swelling Verified 06/25/22 15:20 of legs Home Meds Home Medications Medication Instructions Recorded Confirmed cholecalciferol (vitamin D3) 50 2,000 units PO DAILY 03/27/18 06/25/22 mcg (2,000 unit) capsule inhalational spacing device #1 ea 09/30/18 06/19/22 (Aerochamber Plus Flow-Vu) vit C 250 mg-vit E 90 mg-zinc 40 1 tab PO BID 10/29/19 06/25/22 mg-copper 1 no-[id number] capsule (PreserVision AREDS-2) triamcinolone acetonide 0.025 % 1 applic topical DAILY PRN Skin 03/02/21 06/25/22 topical cream Irritation fexofenadine 180 mg tablet 180 mg PO DAILY PRN allergy 01/08/22 06/25/22 (Jaimee Allergy) symptoms L.acidophilus-L.plantarum-L.rhamnosus 1 cap PO DAILY 02/05/22 06/25/22 1 billion cell capsule,delay rel (Probiotic Pearls Women's) milnacipran 100 mg tablet (Savella) 100 mg PO .COMPLEX 02/20/22 06/25/22 CPAP Machine 06/19/22 06/19/22 warfarin 5 mg tablet See Rx Instructions PO UD 06/19/22 06/25/22 acyclovir 400 mg tablet 400 mg PO DAILY 06/25/22 06/25/22 polyethylene glycol 3350 17 17 g PO DAILY PRN Constipation 06/25/22 06/25/22 gram/dose oral powder (Miralax) tretinoin 0.025 % topical cream 1 applic topical Q OTHER DAY PRN 06/25/22 06/25/22 Skin Irritation Previous Rx's Medication Instructions Recorded azelastine 137 mcg (0.1 %) nasal 1 spray intranasal BID PRN 05/20/20 spray aerosol allergic symptoms #1 mL fluticasone propionate 50 2 spray intranasal DAILY PRN 05/20/20 mcg/actuation nasal allergy symptoms #47.4 grams spray,suspension albuterol sulfate 90 mcg/actuation 1 - 2 puff inhalation .COMPLEX PRN 06/05/21 aerosol inhaler (Proventil HFA) Shortness Of Breath Or Wheezing #8.5 grams Oxygen Home #1 ea 07/20/21 nystatin 100,000 unit/gram topical 1 applic topical BID PRN rash #30 10/11/21 powder grams metoprolol succinate 25 mg 25 mg PO DAILY #90 tabs 01/11/22 tablet,extended release 24 hr (Toprol XL) simvastatin 40 mg tablet (Zocor) 40 mg PO DAILY #90 tabs 01/11/22 eszopiclone 2 mg tablet 2 mg PO HS #90 tabs 03/29/22 torsemide 10 mg tablet 10 mg PO DAILY #14 tabs 06/19/22 cephalexin 500 mg capsule 500 mg PO TID #21 caps 06/23/22 Results & Data (ED) Vital Signs Vital Signs - 24 hr 06/25/22 10:13 06/25/22 10:37 06/25/22 11:26 Temperature 36.5 C Temperature Source Temporal Artery Scan Pulse Rate 67 78 Pulse Rate [Apical] 90 Pulse Rate from SpO2 Sensor Pulse Rhythm Pulse Rhythm [Apical] Pulse Strength [Apical] Respiratory Rate 20 16 Respiratory Effort / Characteristics Non-Labored Spontaneous Respiratory Depth Normal Respiratory Pattern Blood Pressure [Right Arm] Blood Pressure Mean [Right Arm] Blood Pressure Position [Right Arm] Pulse Oximetry 97 96 Oxygen Delivery Method Room Air Room Air Sepsis Recent Fever Within 48 Hours No Sepsis New/Unexplained Change in Mental Status No Sepsis Action Taken by Nursing No Action Required 06/25/22 12:17 06/25/22 12:19 06/25/22 15:25 Temperature Temperature Source Pulse Rate 83 79 Pulse Rate [Apical] 83 Pulse Rate from SpO2 Sensor Pulse Rhythm Regular Pulse Rhythm [Apical] Regular Pulse Strength [Apical] Normal Respiratory Rate 18 18 Respiratory Effort / Characteristics Non-Labored Spontaneous Respiratory Depth Normal Respiratory Pattern Regular Blood Pressure [Right Arm] 128/70 Blood Pressure Mean [Right Arm] 89 Blood Pressure Position [Right Arm] Lying Pulse Oximetry 98 98 Oxygen Delivery Method Room Air Room Air Sepsis Recent Fever Within 48 Hours Sepsis New/Unexplained Change in Mental Status Sepsis Action Taken by Nursing 06/25/22 10:35 06/25/22 10:40 06/25/22 10:50 Temperature Temperature Source Pulse Rate 91 H 91 H 87 Pulse Rate [Apical] Pulse Rate from SpO2 Sensor Pulse Rhythm Pulse Rhythm [Apical] Pulse Strength [Apical] Respiratory Rate 17 15 Respiratory Effort / Characteristics Respiratory Depth Respiratory Pattern Blood Pressure [Right Arm] Blood Pressure Mean [Right Arm] Blood Pressure Position [Right Arm] Pulse Oximetry Oxygen Delivery Method Sepsis Recent Fever Within 48 Hours Sepsis New/Unexplained Change in Mental Status Sepsis Action Taken by Nursing 06/25/22 11:00 06/25/22 11:10 06/25/22 11:20 Temperature Temperature Source Pulse Rate 83 85 85 Pulse Rate [Apical] Pulse Rate from SpO2 Sensor Pulse Rhythm Pulse Rhythm [Apical] Pulse Strength [Apical] Respiratory Rate 16 12 12 Respiratory Effort / Characteristics Respiratory Depth Respiratory Pattern Blood Pressure [Right Arm] Blood Pressure Mean [Right Arm] Blood Pressure Position [Right Arm] Pulse Oximetry Oxygen Delivery Method Sepsis Recent Fever Within 48 Hours Sepsis New/Unexplained Change in Mental Status Sepsis Action Taken by Nursing 06/25/22 11:30 06/25/22 11:40 06/25/22 11:59 Temperature Temperature Source Pulse Rate 82 83 112 H Pulse Rate [Apical] Pulse Rate from SpO2 Sensor Pulse Rhythm Pulse Rhythm [Apical] Pulse Strength [Apical] Respiratory Rate 13 17 19 Respiratory Effort / Characteristics Respiratory Depth Respiratory Pattern Blood Pressure [Right Arm] Blood Pressure Mean [Right Arm] Blood Pressure Position [Right Arm] Pulse Oximetry Oxygen Delivery Method Sepsis Recent Fever Within 48 Hours Sepsis New/Unexplained Change in Mental Status Sepsis Action Taken by Nursing 06/25/22 12:00 06/25/22 12:10 06/25/22 12:20 Temperature Temperature Source Pulse Rate 103 H 87 86 Pulse Rate [Apical] Pulse Rate from SpO2 Sensor 88 Pulse Rhythm Pulse Rhythm [Apical] Pulse Strength [Apical] Respiratory Rate 18 15 22 Respiratory Effort / Characteristics Respiratory Depth Respiratory Pattern Blood Pressure [Right Arm] Blood Pressure Mean [Right Arm] Blood Pressure Position [Right Arm] Pulse Oximetry 99 Oxygen Delivery Method Sepsis Recent Fever Within 48 Hours Sepsis New/Unexplained Change in Mental Status Sepsis Action Taken by Nursing 06/25/22 12:30 06/25/22 12:40 06/25/22 12:50 Temperature Temperature Source Pulse Rate 90 86 85 Pulse Rate [Apical] Pulse Rate from SpO2 Sensor 91 H 80 Pulse Rhythm Pulse Rhythm [Apical] Pulse Strength [Apical] Respiratory Rate 13 18 23 Respiratory Effort / Characteristics Respiratory Depth Respiratory Pattern Blood Pressure [Right Arm] Blood Pressure Mean [Right Arm] Blood Pressure Position [Right Arm] Pulse Oximetry 97 Oxygen Delivery Method Sepsis Recent Fever Within 48 Hours Sepsis New/Unexplained Change in Mental Status Sepsis Action Taken by Nursing 06/25/22 15:18 06/25/22 15:20 06/25/22 15:30 Temperature Temperature Source Pulse Rate 85 Pulse Rate [Apical] Pulse Rate from SpO2 Sensor 89 92 H 86 Pulse Rhythm Pulse Rhythm [Apical] Pulse Strength [Apical] Respiratory Rate 18 Respiratory Effort / Characteristics Respiratory Depth Respiratory Pattern Blood Pressure [Right Arm] Blood Pressure Mean [Right Arm] Blood Pressure Position [Right Arm] Pulse Oximetry 98 99 97 Oxygen Delivery Method Sepsis Recent Fever Within 48 Hours Sepsis New/Unexplained Change in Mental Status Sepsis Action Taken by Longterm Medications Current Medication List: was personally reviewed by me Laboratory Data Attestation: I reviewed the patient's lab results. 06/25/22 10:42 06/25/22 10:42 Lab Results 06/25/22 06/25/22 06/25/22 Range/Units 10:42 10:42 10:42 WBC 7.19 (4.8-10.8) K/ul RBC 5.05 (4.20-5.40) M/uL Hgb 15.4 (12.0-16.0) g/dl Hct 44.9 (37.0-47.0) % MCV 88.9 (80.0-100.0) fL MCH 30.5 (25.0-34.0) pg MCHC 34.3 (32.0-36.0) g/dL RDW Std Deviation 45.6 (36.4-46.3) fL RDW Coeff of Roger 14.1 (11.5-14.5) % Plt Count 238 (130-400) K/uL MPV 9.9 (9.4-12.4) fL Immature Gran % (Auto) 0.7 % Neut % (Auto) 69.8 % Lymph % (Auto) 15.9 % [place] % (Auto) 12.5 % Eos % (Auto) 0.7 % Baso % (Auto) 0.4 % Neut # (Auto) 5.02 (1.40-6.50) K/uL Lymph # (Auto) 1.14 L (1.2-3.4) K/uL [place] # (Auto) 0.90 H (0.11-0.59) K/uL Eos # (Auto) 0.05 (0-0.50) K/uL Baso # (Auto) 0.03 (0-0.2) K/uL Immature Gran # (Auto) 0.05 (0.01-0.20) K/uL ESR (0-30) mm/hr PT 21.2 H (9.0-12.0) Seconds INR 2.0 H (0.9-1.1) APTT 33.0 H (21.0-31.0) Seconds PTT Ratio 1.2 Sodium 139 (136-145) mmol/L Potassium 3.0 L (3.5-5.1) mmol/L Chloride 99 (98-107) mmol/L Carbon Dioxide 27 (21-32) mmol/L Anion Gap 13 H (3-11) BUN 20 (6-23) mg/dl Creatinine 0.99 (0.6-1.2) mg/dl Est Cr Clr Drug Dosing Not Reportable Est GFR ( Amer) 61.9 ml/min Est GFR (Non-Af Amer) 53.4 ml/min BUN/Creatinine Ratio 20.2 H (10-20) Glucose 154 H (70-99(Fasting)) mg/dl Calcium 9.7 (8.6-10.3) mg/dl Magnesium 1.9 (1.7-2.4) mg/dl Total Bilirubin 0.8 (0.2-1.0) mg/dl AST 32 (13-39) U/L ALT 40 (7-52) U/L Alkaline Phosphatase 61 (34-104) U/L Total Creatine Kinase 50 (26-192) U/L C-Reactive Protein < 0.50 (0-0.5) mg/dl Total Protein 6.9 (6.0-8.3) gm/dl Albumin 4.2 (3.4-5.0) gm/dl Globulin 2.7 (2.5-4.0) gm/dl Albumin/Globulin Ratio 1.6 (0.9-2) Procalcitonin (0-0.5) ng/ml TSH (0.300-4.500) uIu/ml SARS-CoV-2, RNA, NAAT (NEGATIVE) 06/25/22 06/25/22 06/25/22 Range/Units 10:42 10:42 14:02 WBC (4.8-10.8) K/ul RBC (4.20-5.40) M/uL Hgb (12.0-16.0) g/dl Hct (37.0-47.0) % MCV (80.0-100.0) fL MCH (25.0-34.0) pg MCHC (32.0-36.0) g/dL RDW Std Deviation (36.4-46.3) fL RDW Coeff of Roger (11.5-14.5) % Plt Count (130-400) K/uL MPV (9.4-12.4) fL Immature Gran % (Auto) % Neut % (Auto) % Lymph % (Auto) % [place] % (Auto) % Eos % (Auto) % Baso % (Auto) % Neut # (Auto) (1.40-6.50) K/uL Lymph # (Auto) (1.2-3.4) K/uL [place] # (Auto) (0.11-0.59) K/uL Eos # (Auto) (0-0.50) K/uL Baso # (Auto) (0-0.2) K/uL Immature Gran # (Auto) (0.01-0.20) K/uL ESR 36 H (0-30) mm/hr PT (9.0-12.0) Seconds INR (0.9-1.1) APTT (21.0-31.0) Seconds PTT Ratio Sodium (136-145) mmol/L Potassium (3.5-5.1) mmol/L Chloride (98-107) mmol/L Carbon Dioxide (21-32) mmol/L Anion Gap (3-11) BUN (6-23) mg/dl Creatinine (0.6-1.2) mg/dl Est Cr Clr Drug Dosing Est GFR ( Amer) ml/min Est GFR (Non-Af Amer) ml/min BUN/Creatinine Ratio (10-20) Glucose (70-99(Fasting)) mg/dl Calcium (8.6-10.3) mg/dl Magnesium (1.7-2.4) mg/dl Total Bilirubin (0.2-1.0) mg/dl AST (13-39) U/L ALT (7-52) U/L Alkaline Phosphatase (34-104) U/L Total Creatine Kinase (26-192) U/L C-Reactive Protein (0-0.5) mg/dl Total Protein (6.0-8.3) gm/dl Albumin (3.4-5.0) gm/dl Globulin (2.5-4.0) gm/dl Albumin/Globulin Ratio (0.9-2) Procalcitonin < 0.05 (0-0.5) ng/ml TSH 2.779 (0.300-4.500) uIu/ml SARS-CoV-2, RNA, NAAT (NEGATIVE) 06/25/22 Range/Units 15:20 WBC (4.8-10.8) K/ul RBC (4.20-5.40) M/uL Hgb (12.0-16.0) g/dl Hct (37.0-47.0) % MCV (80.0-100.0) fL MCH (25.0-34.0) pg MCHC (32.0-36.0) g/dL RDW Std Deviation (36.4-46.3) fL RDW Coeff of Roger (11.5-14.5) % Plt Count (130-400) K/uL MPV (9.4-12.4) fL Immature Gran % (Auto) % Neut % (Auto) % Lymph % (Auto) % [place] % (Auto) % Eos % (Auto) % Baso % (Auto) % Neut # (Auto) (1.40-6.50) K/uL Lymph # (Auto) (1.2-3.4) K/uL [place] # (Auto) (0.11-0.59) K/uL Eos # (Auto) (0-0.50) K/uL Baso # (Auto) (0-0.2) K/uL Immature Gran # (Auto) (0.01-0.20) K/uL ESR (0-30) mm/hr PT (9.0-12.0) Seconds INR (0.9-1.1) APTT (21.0-31.0) Seconds PTT Ratio Sodium (136-145) mmol/L Potassium (3.5-5.1) mmol/L Chloride (98-107) mmol/L Carbon Dioxide (21-32) mmol/L Anion Gap (3-11) BUN (6-23) mg/dl Creatinine (0.6-1.2) mg/dl Est Cr Clr Drug Dosing Est GFR ( Amer) ml/min Est GFR (Non-Af Amer) ml/min BUN/Creatinine Ratio (10-20) Glucose (70-99(Fasting)) mg/dl Calcium (8.6-10.3) mg/dl Magnesium (1.7-2.4) mg/dl Total Bilirubin (0.2-1.0) mg/dl AST (13-39) U/L ALT (7-52) U/L Alkaline Phosphatase (34-104) U/L Total Creatine Kinase (26-192) U/L C-Reactive Protein (0-0.5) mg/dl Total Protein (6.0-8.3) gm/dl Albumin (3.4-5.0) gm/dl Globulin (2.5-4.0) gm/dl Albumin/Globulin Ratio (0.9-2) Procalcitonin (0-0.5) ng/ml TSH (0.300-4.500) uIu/ml SARS-CoV-2, RNA, NAAT NEGATIVE (NEGATIVE) Administered Medications Potassium Chloride (Potassium Chloride Crtab 20 Meq Tabcr) 40 meq PO Q2H MELQUIADES Stop: 06/25/22 19:31 Last Admin: 06/25/22 17:37 Dose: 40 meq Documented By: CATHRYN Discontinued Medications Doxycycline Hyclate (Doxycycline Hyclate 100 Mg Cap) 100 mg PO NOW STA Stop: 06/25/22 14:20 Last Admin: 06/25/22 15:16 Dose: 100 mg Documented By: CATHRYN Sodium Chloride (Nss) 500 mls @ 999 mls/hr IV .Q31M MELQUIADES Stop: 06/25/22 12:00 Last Infusion: 06/25/22 12:40 Dose: 0 mls/hr Documented By: Admin: 06/25/22 12:07 Dose: 999 mls/hr Documented By: CATHRYN Sodium Chloride (Nss) 250 mls @ 999 mls/hr IV .Q16M ONE Stop: 06/25/22 14:34 Last Infusion: 06/25/22 16:02 Dose: 0 mls/hr Documented By: Admin: 06/25/22 15:16 Dose: 999 mls/hr Documented By: CATHRYN Mupirocin (Mupirocin 2% Oint 22 Gm Tube) 1 appln EXT NOW STA Stop: 06/25/22 14:20 Last Admin: 06/25/22 15:16 Dose: 1 appln Documented By: CATHRYN Imaging Data Radiologist's Impression: Cervical Spine CT 06/25/22 11:16 CT SCAN OF THE CERVICAL SPINE CLINICAL HISTORY: Syncope. COMPARISON STUDY: No priors. TECHNIQUE: CT scan of the cervical spine is performed from the skull base to the upper thoracic spine. Images are reviewed in the axial, sagittal, and coronal planes. IV contrast was not administered for this examination. A dose lowering technique was utilized adhering to the principles of ALARA. CT DOSE: 1214.69 mGy.cm FINDINGS: Skeletal structures: The skeletal structures are osteopenic. There is no evidence of fracture or subluxation involving the cervical spine. Vertebral body height is maintained. There is minimal anterolisthesis at C3-C4. Alignment is otherwise preserved. Anterior osteophytes are seen throughout. There is straightening of the cervical lordosis. The odontoid process and lateral masses are intact. The atlantoaxial articulation is preserved noting productive degenerative change. There is mild/moderate multilevel cervical spondylosis. Uncovertebral and facet arthropathy contribute to neural foraminal narrowing at several levels. The spinous processes appear intact. Intervertebral discs: The disc spaces are well maintained. Central canal: Widely patent. Soft tissues: The prevertebral and paraspinous soft tissues are within normal limits. Calvarium: The visualized calvarium at the skull base appears intact. Brain parenchyma: Partially visualized brain parenchyma at the skull base is within normal limits. Sinuses and mastoids: The visualized paranasal sinuses are clear. The mastoid air cells are well pneumatized. Lung apices: Clear as visualized. IMPRESSION: 1. There is no evidence of fracture or subluxation involving the cervical spine. 2. Osteopenia and spondylotic change as above. ACT 112: Negative or not required by law. Electronically signed by: Amado Villanueva M.D. 06/25/2022 12:[address] 06/25/22 11:16 CT head/brain wo con CLINICAL HISTORY: fall Technique: Contiguous axial CT images of the head were acquired from the base of the skull to the vertex without intravenous contrast administration. Images were viewed in brain, subdural and bone windows. Automated dose lowering techniques and/or adjustment according to patient size were utilized for this exam. Comparison: None available at the time of this dictation. Findings: Areas of decreased attenuation are present in the periventricular and subcortical white matter bilaterally consistent with small vessel ischemic disease. Generalized cerebral atrophy with commensurate enlargement of the ventricles, sulci, and cisterns is also present. There is no acute intracranial hemorrhage or evidence of acute territorial infarction. No shift of the midline structures, mass effect, or extra-axial abnormalities are shown. Atherosclerotic calcifications are present in the intracranial segments of the internal carotid arteries. Imaged portions of the paranasal sinuses and mastoid air cells are clear. The orbits appear normal. There are no acute fractures of the calvaria or scalp swelling. Impression: No acute intracranial hemorrhage, no evidence of acute territorial infarction or other acute intracranial disease process. ACT 112: Negative or not required by law. Electronically signed by: Bryant Arzola M.D. 06/25/2022 11:53 AM Hip/Pelvis X-Ray 06/25/22 11:16 XR hip RT 2V w pelvis CLINICAL HISTORY: fall, hip pain TECHNIQUE: 2 views of the right hip and single frontal view of the pelvis were obtained. Comparison: None available at the time of this dictation. FINDINGS: There is no evidence of an acute fracture. Degenerative changes are seen in the hip joint. No soft tissue abnormality is seen. IMPRESSION: Degenerative changes without evidence of acute abnormality. ACT 112: Negative or not required by law. Electronically signed by: Bryant Arzola M.D. 06/25/2022 1:27 PM Foot X-Ray 06/25/22 17:10 XR foot LT 2V CLINICAL HISTORY: left second toe wound, monitor for osteo TECHNIQUE: 2 views of the left foot were obtained. Comparison: Comparison is made to left foot radiograph 01/15/2022 FINDINGS: No evidence of bony erosion is seen. Degenerative changes are seen. Soft tissue swelling seen about the left foot. IMPRESSION: No radiographic evidence of osteomyelitis. If clinical concern remains, MRI is a more sensitive modality. ACT 112: Negative or not required by law. Electronically signed by: Bryant Arzola M.D. 06/25/2022 6:01 PM Discharge Plan Visit Data Chief Complaint: Syncope Stated Complaint: DIZZY;FELL AND HIT HEAD ED Provider: Derick Brewer Discharge Problem: Cellulitis of foot, Syncope, Hypokalemia, Dehydration Forms Stand Alone Forms: [facility] Prescriptions Prescriptions: No Action Probiotic Pearls Women's 1 billion cell capsule,delayed release(DR/EC) 1 cap PO DAILY cholecalciferol (vitamin D3) 2,000 unit capsule 2,000 units PO DAILY PreserVision AREDS-2 [id number]-mg capsule 1 tab PO BID Rx Instructions: administer with meals fexofenadine [Jaimee Allergy] 180 mg tablet 180 mg PO DAILY PRN (Reason: allergy symptoms) warfarin 5 mg tablet See Rx Instructions PO UD Dose Instruction: TAKE 1 TABLET EVERY DAY Rx Instructions: PER PT "TAKES 5 MG Q EVENING". 2.5mg q /, 5mg x 5 days per [facility] orally use as directed; fluticasone propionate 50 mcg/actuation spray,suspension 2 spray INTNAS DAILY PRN (Reason: allergy symptoms) Qty: 47.4 0RF Rx Instructions: administer into each nostril azelastine 137 mcg (0.1 %) aerosol,spray 1 spray intranasal BID PRN (Reason: allergic symptoms) Qty: 1 2RF albuterol sulfate [Proventil HFA] 90 mcg/actuation HFA aerosol inhaler 1 - 2 puff INHALATION .COMPLEX PRN (Reason: Shortness Of Breath Or Wheezing) Qty: 8.5 0RF Rx Instructions: 1 - 2 puff INHALATION every 4-6 hours PRN; (DME) Oxygen Home Liters Per Minute See Rx Instructions .Route Qty: 1 0RF Rx Instructions: 2LPM SUPPLEMENTAL OXYGEN VIA NASAL CANULA DX: G47.34, G47.33 LENGTH OF NEED: 99 MONTHS metoprolol succinate [Toprol XL] 25 mg tablet extended release 24 hr 25 mg PO DAILY Qty: 90 3RF simvastatin [Zocor] 40 mg tablet 40 mg PO DAILY Qty: 90 3RF eszopiclone 2 mg tablet 2 mg PO HS Qty: 90 1RF Savella 100 mg tablet 100 mg PO .COMPLEX Rx Instructions: 100 mg; 1/2 tab AM; 1 tab HS (DME) CPAP Machine Misc See Rx Instructions .Route Rx Instructions: As directed torsemide 10 mg tablet 10 mg PO DAILY Qty: 14 2RF cephalexin 500 mg capsule 500 mg PO TID Qty: 21 0RF Rx Instructions: STARTED 06/23/22 FOR 7 DAYS. nystatin 100,000 unit/gram powder 1 applic topical BID PRN (Reason: rash) Qty: 30 0RF (DME) Aerochamber Plus Flow-Vu spacer See Dose Instructions .ROUTE .MEDSUPPLY Qty: 1 Rx Instructions: As directed CPAP triamcinolone acetonide 0.025 % cream 1 applic topical DAILY PRN (Reason: Skin Irritation) tretinoin 0.025 % cream 1 applic topical Q OTHER DAY PRN (Reason: Skin Irritation) acyclovir 400 mg tablet 400 mg PO DAILY Rx Instructions: TAKE 1 TABLET BY MOUTH DAILY polyethylene glycol 3350 [Miralax] 17 gram/dose powder 17 g PO DAILY PRN (Reason: Constipation) Referrals Referrals: Francisco Wallis MD [Primary Care Provider] -
[2022-06-25] MEDS ORDERED: SODIUM CHLORIDE 0.9% 500 ML IV SCH (11:30)
[2022-06-25 11:40] LABS: Basophils # (auto) 0.03 K/uL (0-0.2); Basophils % (auto) 0.4 %; Eosinophils # (auto) 0.05 K/uL (0-0.50); Eosinophils % (auto) 0.7 %; Hematocrit (blood only) 44.9 % (37.0-47.0); Hemoglobin 15.4 g/dl (12.0-16.0); Immature Granulocytes # (auto) 0.05 K/uL (0.01-0.20); Immature Granulocytes % (auto) 0.7 %; Lymphocytes # (auto) 1.14 K/uL (1.2-3.4); Lymphocytes % (auto) 15.9 %; Mean Corpuscular Hemoglobin 30.5 pg (25.0-34.0); Mean Corpuscular Hgb Conc 34.3 g/dL (32.0-36.0); Mean Corpuscular Volume 88.9 fL (80.0-100.0); Mean Platelet Volume 9.9 fL (9.4-12.4); Monocytes % (auto) 12.5 %; Neutrophils # (auto) 5.02 K/uL (1.40-6.50); Neutrophils % (auto) 69.8 %; Platelet Count 238 K/uL (130-400); RDW Coefficient of Variation 14.1 % (11.5-14.5); RDW Standard Deviation 45.6 fL (36.4-46.3); Red Blood Count 5.05 M/uL (4.20-5.40); White Blood Count 7.19 K/ul (4.8-10.8)
[2022-06-25 11:42] LABS: Alanine Aminotransferase 40 U/L (7-52); Albumin Globulin Ratio 1.6 (0.9-2); Albumin Level 4.2 gm/dl (3.4-5.0); Alkaline Phosphatase 61 U/L (34-104); Anion Gap 13 (3-11); Aspartate Aminotransferase 32 U/L (13-39); BUN Creatinine Ratio 20.2 (10-20); Bilirubin,Total 0.8 mg/dl (0.2-1.0); Blood Urea Nitrogen 20 mg/dl (6-23); Calcium 9.7 mg/dl (8.6-10.3); Carbon Dioxide 27 mmol/L (21-32); Chloride 99 mmol/L (98-107); Est GFR (African American) 61.9 ml/min; Est GFR (Non-African American) 53.4 ml/min; Globulin 2.7 gm/dl (2.5-4.0); Glucose 154 mg/dl (70-99(Fasting)); Magnesium 1.9 mg/dl (1.7-2.4); Sodium 139 mmol/L (136-145); Total Protein 6.9 gm/dl (6.0-8.3)
--- NOTE | 2022-06-25 11:54 | CT Scan Report ---
CT head/brain wo con CLINICAL HISTORY: fall Technique: Contiguous axial CT images of the head were acquired from the base of the skull to the marie jason without intravenous contrast administration. Images were viewed in brain, subdural and [facility]. Automated dose lowering techniques and/or adjustment according to patient size were utilized for this exam. Comparison: None available at the time of this dictation. Findings: Areas of decreased attenuation are present in the periventricular and subcortical white matter bilate rally consistent with small vessel ischemic disease. Generalized cerebral atrophy with commensurate e nlargement of the ventricles, sulci, and cisterns is also present. There is no acute intracranial hem orrhage or evidence of acute territorial infarction. No shift of the midline structures, mass effect, or extra-axial abnormalities are shown. Atherosclerotic calcifications are present in the intracran ial segments of the internal carotid arteries. Imaged portions of the paranasal sinuses and mastoid air cells are clear. The orbits appear normal. There are no acute fractures of the calvaria or scalp swelling. Impression: No acute intracranial hemorrhage, no evidence of acute territorial infarction or other acute intracra nial disease process. ACT 112: Negative or not required by law. Electronically signed by: Bryant Arzola M.D. 06/25/2022 11:53 AM
--- NOTE | 2022-06-25 12:06 | CT Scan Report ---
CT SCAN OF THE CERVICAL SPINE CLINICAL HISTORY: Syncope. COMPARISON STUDY: No priors. TECHNIQUE: CT scan of the cervical spine is performed from the skull base to the upper thoracic spine . Images are reviewed in the axial, sagittal, and coronal planes. IV contrast was not administered fo r this examination. A dose lowering technique was utilized adhering to the principles of ALARA. CT DOSE: 1214.69 mGy.cm FINDINGS: Skeletal structures: The skeletal structures are osteopenic. There is no evidence of fracture or subl uxation involving the cervical spine. Vertebral body height is maintained. There is minimal anterolis thesis at C3-C4. Alignment is otherwise preserved. Anterior osteophytes are seen throughout. There is straightening of the cervical lordosis. The odontoid process and lateral masses are intact. The atla ntoaxial articulation is preserved noting productive degenerative change. There is mild/moderate mult ilevel cervical spondylosis. Uncovertebral and facet arthropathy contribute to neural foraminal narro wing at several levels. The spinous processes appear intact. Intervertebral discs: The disc spaces are well maintained. Central canal: Widely patent. Soft tissues: The prevertebral and paraspinous soft tissues are within normal limits. Calvarium: The visualized calvarium at the skull base appears intact. Brain parenchyma: Partially visualized brain parenchyma at the skull base is within normal limits. Sinuses and mastoids: The visualized paranasal sinuses are clear. The mastoid air cells are well pneu matized. Lung apices: Clear as visualized. IMPRESSION: 1. There is no evidence of fracture or subluxation involving the cervical spine. 2. Osteopenia and spondylotic change as above. ACT 112: Negative or not required by law. Electronically signed by: Amado Villanueva M.D. 06/25/2022 12:05 PM
[2022-06-25 12:16] LABS: Partial Thromboplastin Ratio 1.2; Prothrombin Time 21.2 Seconds (9.0-12.0)
--- NOTE | 2022-06-25 13:28 | XRay Report ---
XR hip RT 2V w pelvis CLINICAL HISTORY: fall, hip pain TECHNIQUE: 2 views of the right hip and single frontal view of the pelvis were obtained. Comparison: None available at the time of this dictation. FINDINGS: There is no evidence of an acute fracture. Degenerative changes are seen in the hip joint. No soft ti ssue abnormality is seen. IMPRESSION: Degenerative changes without evidence of acute abnormality. ACT 112: Negative or not required by law. Electronically signed by: Bryant Arzola M.D. 06/25/2022 1:27 PM
[2022-06-25] MEDS ORDERED: MUPIROCIN 2% OINT 22 GM TUBE EXT STA (14:19)
[2022-06-25] MEDS ORDERED: DOXYCYCLINE HYCLATE 100 MG CAP PO STA (14:19)
[2022-06-25] MEDS ORDERED: SODIUM CHLORIDE 0.9% 250 ML IV ONE (14:19)
--- NOTE | 2022-06-25 16:43 | History & Physical Report ---
Date of Service June 25, 2022 Assessment & Plan (1) Syncope: Plan: -Admit to med/tele -At this time the cause of the patient's syncopal episode while on the toilet appears most likely associated with a vasovagal episode, exacerbated by acute dehydration and possible orthostatic hypotension -No acute trauma on CT head, CT cervical spine, and BL hip xrays -Has lost approximately 12 lbs since starting daily torsemide for LE swelling -Continue to monitor on tele for now, daily orthostatic vitals, will obtain routine TTE tomorrow -S/P 2L NSS in the ED, hold additional IV fluids for now, hold torsemide -Home Warfarin for DVT PPX -Am CBC, BMP, Mag, PT/INR (2) Hypokalemia: Plan: -Noted to be 3.0 today -Likely due to recent diuretic use -No acute ECG changed -Will give 40 meq Po KCL x 2 doses on admission -Continue to monitor on tele, hold torsemide, monitor am electrolytes (3) Foot ulcer: Plan: -Left second toe ulcer, started as a blister but has progressed -Was started on Keflex over the weekend without improvement -Switched to PO doxy in the ED, will continue BID dosing for now -Will obtain ESR, CRP, wound culture with gram stain, and xray for further evaluation (4) Atrial fibrillation: Plan: -Currently rate controlled -Continue warfarin, INR at 2.0 today -Monitor am INR (5) Hyperlipidemia: Plan: -Hold statin until CK level results (6) HTN (hypertension): Plan: -Stable -Hold diuretics for now (7) Obstructive sleep apnea: Plan: -HS CPAP ordered Plan The patient was discussed with Dr. Alarcon at the time of the admission History of Present Illness Chief Complaint: Fall Primary Care Provider: Francisco Wallis MD Emma is an 82 year old female with a PMH significant for afib on Eliquis, Roz-Danlos syndrome, OTIS who presented to the [facility] ED on 06/25/22 with a syncopal episode last night with ongoing lightheadedness/dizziness. In the ED the patient was found to be stable. Labs were significant for an INR of 2.0, potassium of 3.0, AG of [address] of the head, CT of the cervical spine, and xray of the pelvis were WNL. Prior to admission the patient was given 2L NSS, and dose of doxycycline, and Mupirocin topical ointment. At the time of the exam the patient was sitting in bed in no acute distress with her daughter sitting bedside. The patient states that she saw her PCP approximately one week ago due to significant LE edema. At that visit she was started on 10 mg PO torsemide daily which she has been taking as prescribed. She and her daughter state that she has had an approximately 12 lb weight loss over the past week. She has had a sore spot on her left second toe, which was initially a blister when her LE's were very swollen. This progressed to be more erythematous and painful over the weekend. She called the PCP answering service and was started on Keflex, of which she does not feel as though is helping. Yesterday she was feeling weak and sat on the toilet to try and have a BM. During this time she became lightheaded/dizzy and lost consciousness. She states that she woke up on the ground a "few minutes" later and was able to get herself up. She had her Son stay over with her last night to bed safe and did not take her dose of Warfarin last night. She is currently without pain after her fall, she does think that she hit her head. She states that her head still feels "a little fuzzy, like it has cotton balls in it". She denies any recent fever, chills, headache, changes in vision, hearing, taste, and smell, chest pain, SOB, ABD pain, nausea, vomiting, dysuria hematuria, melena, and recurrent falls since yesterday. She and her daughter feel as though her LE swelling is much improved but they are concerned her left foot is infected. She is a full code and would want her son to make medical decisions for her if she could not make them herself. Please refer to Dr. Alarcon's attestation for any changes to the treatment plan Allergies Allergy/AdvReac Type Severity Reaction Status Date / Time lisinopril Allergy Intermediate swollen Verified 06/28/22 14:35 upper lip Feb 2021, drug on hold adhesive Allergy Mild TAPE Verified 06/28/22 14:35 codeine Allergy Mild Unknown Verified 06/28/22 14:35 azithromycin Allergy Unknown Unknown Verified 06/28/22 14:35 blue dye Allergy Unknown UNKNOWN Verified 06/28/22 14:35 bupropion [From Wellbutrin] Allergy Unknown Unknown Verified 06/28/22 14:35 duloxetine Allergy Unknown UNKNOWN Verified 06/28/22 14:35 fluoxetine Allergy Unknown UNKNOWN Verified 06/28/22 14:35 oxycodone Allergy Unknown Unknown Verified 06/28/22 14:35 pregabalin Allergy Unknown UNKNOWN Verified 06/28/22 14:35 tramadol Allergy Unknown UNKNOWN Verified 06/28/22 14:35 venlafaxine Allergy Unknown UNKNOWN Verified 06/28/22 14:35 cephalexin AdvReac Severe Dizziness Verified 06/28/22 14:35 meloxicam AdvReac Severe FEET AND Verified 06/28/22 14:35 LOWER LEGS SWELLED amoxicillin AdvReac Intermediate DIARRHEA Verified 06/28/22 14:35 clavulanic acid AdvReac Intermediate DIARRHEA Verified 06/28/22 14:35 amlodipine AdvReac Mild dry mouth Verified 06/28/22 14:35 hydrochlorothiazide AdvReac Mild dry mouth Verified 06/28/22 14:35 celecoxib AdvReac Unknown swelling Verified 06/28/22 14:35 of legs Home Medications Medication Instructions Recorded Confirmed Type cholecalciferol (vitamin D3) 50 2,000 units PO DAILY 03/27/18 06/28/22 History mcg (2,000 unit) capsule inhalational spacing device #1 ea 09/30/18 06/28/22 History (Aerochamber Plus Flow-Vu) vit C 250 mg-vit E 90 mg-zinc 40 1 tab PO BID 10/29/19 06/28/22 History mg-copper 1 og-eneeyh-xgkxya capsule (PreserVision AREDS-2) azelastine 137 mcg (0.1 %) nasal 1 spray intranasal BID PRN 05/20/20 06/28/22 Rx spray aerosol allergic symptoms #1 mL fluticasone propionate 50 2 spray intranasal DAILY PRN 05/20/20 06/28/22 Rx mcg/actuation nasal allergy symptoms #47.4 grams spray,suspension triamcinolone acetonide 0.025 % 1 applic topical DAILY PRN Skin 03/02/21 06/28/22 History topical cream Irritation albuterol sulfate 90 mcg/actuation 1 - 2 puff inhalation .COMPLEX PRN 06/05/21 06/28/22 Rx aerosol inhaler (Proventil HFA) Shortness Of Breath Or Wheezing #8.5 grams Oxygen Home #1 ea 07/20/21 06/28/22 Rx nystatin 100,000 unit/gram topical 1 applic topical BID PRN rash #30 10/11/21 06/28/22 Rx powder grams fexofenadine 180 mg tablet 180 mg PO DAILY PRN allergy 01/08/22 06/28/22 History (Jaimee Allergy) symptoms metoprolol succinate 25 mg 25 mg PO DAILY #90 tabs 01/11/22 06/28/22 Rx tablet,extended release 24 hr (Toprol XL) simvastatin 40 mg tablet (Zocor) 40 mg PO DAILY #90 tabs 01/11/22 06/28/22 Rx L.acidophilus-L.plantarum-L.rhamnosus 1 cap PO DAILY 02/05/22 06/28/22 History 1 billion cell capsule,delay rel (Probiotic Pearls Women's) milnacipran 100 mg tablet (Savella) 100 mg PO .COMPLEX 02/20/22 06/28/22 History eszopiclone 2 mg tablet 2 mg PO HS #90 tabs 03/29/22 06/28/22 Rx CPAP Machine 06/19/22 06/28/22 History warfarin 5 mg tablet See Rx Instructions PO UD 06/19/22 06/28/22 History acyclovir 400 mg tablet 400 mg PO DAILY 06/25/22 06/28/22 History polyethylene glycol 3350 17 17 g PO DAILY PRN Constipation 06/25/22 06/28/22 History gram/dose oral powder (Miralax) tretinoin 0.025 % topical cream 1 applic topical Q OTHER DAY PRN 06/25/22 06/28/22 History Skin Irritation doxycycline hyclate 100 mg capsule 100 mg PO BID #20 caps 06/26/22 06/28/22 Rx Past Med/Surg History Medical History Actinic keratosis Acute dysfunction of both eustachian tubes Adverse anesthesia outcome Bilateral leg edema Cataracts, both eyes Chronic anticoagulation Chronic bilateral low back pain without sciatica Decreased hearing of left ear Has 4 children Insomnia Kidney cysts Left temporomandibular joint disorder, unspecified Lumbar radiculopathy Lymphedema Mixed hearing loss, bilateral Palpitations Paroxysmal atrial fibrillation Persistent cough Plantar fasciitis Pulmonary embolism Pulmonary embolism Scoliosis Sebaceous cyst Seborrheic dermatitis of scalp Shoulder pain, bilateral Surgical History History of tonsillectomy History of tubal ligation History of varicose vein ligation S/P cataract surgery S/P hemorrhoidectomy S/P wisdom tooth extraction Family History Father Prostate cancer Myocardial infarction Hearing loss Heart disease Stroke Brother Colon cancer Renal cancer Cancer Mother Pancreatic cancer Hypertension Cancer Diabetes Grandmother (Maternal) Hypertension Diabetes Grandfather (Maternal) Hypertension Uncle Heart disease Sister Cancer Diabetes Other Has 4 children No family history of adverse response to anesthesia No family history of bleeding disorder Denies family history of Ovarian cancer Breast cancer Lung cancer Social History Smoking Status: Never smoker Second Hand Exposure: No; Do You Dip or Chew Tobacco: No; Hx Alcohol Use: No Hx Substance Use: No Preferred Language: Indonesian Communication Ability: Effective Visual Impairment: Limited Hearing Ability: Normal Client Account Assistant Required: No Beliefs That Will Affect Care: None marital status: Current Living Situation: Alone current occupational status: retired How many Children do You have: 4 Feels Safe at Home: Yes Childhood Exposure to Second-Hand Smoke: No Diet: low carbohydrate and low salt caffeine: Yes Dental Care, Regularly: Yes Physical Activity Frequency: 1-2 Times per Week Physical Activity Frequency Comment: once a week does water aerobics Seatbelt Use: always Sunscreen Use: No (doesn't go in the sun) Do you think of yourself as: straight/heterosexual Assistive Devices: Glasses Physical Exam Physical Exam: Physical Exam: General: In no acute distress, stated age, well-nourished, good hygiene HEENT: Normocephalic, atraumatic, no scleral icterus, pupils around round, symmetrical, and reactive to light, moist mucus membranes, trachea midline, no thyromegaly Chest/Pulm: No respiratory distress, symmetrical chest expansion, clear breath sounds throughout Cardiac: RRR, no murmurs noted Abdomen: Negative for ascites and bruising, normoactive bowel sounds, soft, non-tender to palpation throughout Musculoskeletal: Symmetrical upper and lower extremities with full ROM, no atrophy, spasticity, or flaccidity, to tenderness to palpation of the head/neck, intact ROM of the neck, patient with erythematous left second toe with a new scab overlying the previous blister site Extremities: Radial, dorsalis pedis, and posterior tibial pulses are intact and symmetrical, +1 edema noted in the BL LE's Skin: Patient with bruising on the BL knees and left wrist, left second toe as described above Neuro: Alert and oriented to person, place, month, year, and president, no focal defects, CN II-XII tested and intact, no tremors noted Psych: No acute distress, calm and cooperative during the exam Results & Data Results & Data Vital Signs (Past 12 Hours) Vital Signs Temp Pulse Pulse Resp BP Pulse Ox O2 Del Method 06/25/22 15:30 85 18 97 06/25/22 15:20 99 06/25/22 15:18 98 06/25/22 12:50 85 23 06/25/22 12:40 86 18 06/25/22 12:30 90 13 97 06/25/22 12:20 86 22 99 06/25/22 12:10 87 15 06/25/22 12:00 103 H 18 06/25/22 11:59 112 H 19 06/25/22 11:40 83 17 06/25/22 11:30 82 13 06/25/22 11:20 85 12 06/25/22 11:10 85 12 06/25/22 11:00 83 16 06/25/22 10:50 87 06/25/22 10:40 91 H 15 06/25/22 10:35 91 H 17 06/25/22 15:25 79 06/25/22 12:19 83 18 98 Room Air 06/25/22 12:17 83 18 128/70 98 Room Air 06/25/22 11:26 78 06/25/22 10:37 90 16 96 Room Air 06/25/22 10:13 36.5 C 67 20 97 Room Air Laboratory Results Abnormal lab results 06/25/22 06/25/22 06/25/22 Range/Units 10:42 10:42 10:42 Lymph # (Auto) 1.14 L (1.2-3.4) K/uL Tyrrell # (Auto) 0.90 H (0.11-0.59) K/uL PT 21.2 H (9.0-12.0) Seconds INR 2.0 H (0.9-1.1) APTT 33.0 H (21.0-31.0) Seconds Potassium 3.0 L (3.5-5.1) mmol/L Anion Gap 13 H (3-11) BUN/Creatinine Ratio 20.2 H (10-20) Glucose 154 H (70-99(Fasting)) mg/dl Diagnostic Findings Cervical Spine CT 06/25/22 11:16 CT SCAN OF THE CERVICAL SPINE CLINICAL HISTORY: Syncope. COMPARISON STUDY: No priors. TECHNIQUE: CT scan of the cervical spine is performed from the skull base to the upper thoracic spine. Images are reviewed in the axial, sagittal, and coronal planes. IV contrast was not administered for this examination. A dose lowering technique was utilized adhering to the principles of ALARA. CT DOSE: 1214.69 mGy.cm FINDINGS: Skeletal structures: The skeletal structures are osteopenic. There is no evidence of fracture or subluxation involving the cervical spine. Vertebral body height is maintained. There is minimal anterolisthesis at C3-C4. Alignment is otherwise preserved. Anterior osteophytes are seen throughout. There is straightening of the cervical lordosis. The odontoid process and lateral masses are intact. The atlantoaxial articulation is preserved noting productive degenerative change. There is mild/moderate multilevel cervical spondylosis. Uncovertebral and facet arthropathy contribute to neural foraminal narrowing at several levels. The spinous processes appear intact. Intervertebral discs: The disc spaces are well maintained. Central canal: Widely patent. Soft tissues: The prevertebral and paraspinous soft tissues are within normal limits. Calvarium: The visualized calvarium at the skull base appears intact. Brain parenchyma: Partially visualized brain parenchyma at the skull base is within normal limits. Sinuses and mastoids: The visualized paranasal sinuses are clear. The mastoid air cells are well pneumatized. Lung apices: Clear as visualized. IMPRESSION: 1. There is no evidence of fracture or subluxation involving the cervical spine. 2. Osteopenia and spondylotic change as above. ACT 112: Negative or not required by law. Electronically signed by: Amado Villanueva M.D. 06/25/2022 12:[address] 06/25/22 11:16 CT head/brain wo con CLINICAL HISTORY: fall Technique: Contiguous axial CT images of the head were acquired from the base of the skull to the vertex without intravenous contrast administration. Images were viewed in brain, subdural and bone windows. Automated dose lowering techniques and/or adjustment according to patient size were utilized for this exam. Comparison: None available at the time of this dictation. Findings: Areas of decreased attenuation are present in the periventricular and subcortical white matter bilaterally consistent with small vessel ischemic disease. Generalized cerebral atrophy with commensurate enlargement of the ventricles, sulci, and cisterns is also present. There is no acute intracranial hemorrhage or evidence of acute territorial infarction. No shift of the midline structures, mass effect, or extra-axial abnormalities are shown. Atherosclerotic calcifications are present in the intracranial segments of the internal carotid arteries. Imaged portions of the paranasal sinuses and mastoid air cells are clear. The orbits appear normal. There are no acute fractures of the calvaria or scalp swelling. Impression: No acute intracranial hemorrhage, no evidence of acute territorial infarction or other acute intracranial disease process. ACT 112: Negative or not required by law. Electronically signed by: Bryant Arzola M.D. 06/25/2022 11:53 AM Hip/Pelvis X-Ray 06/25/22 11:16 XR hip RT 2V w pelvis CLINICAL HISTORY: fall, hip pain TECHNIQUE: 2 views of the right hip and single frontal view of the pelvis were obtained. Comparison: None available at the time of this dictation. FINDINGS: There is no evidence of an acute fracture. Degenerative changes are seen in the hip joint. No soft tissue abnormality is seen. IMPRESSION: Degenerative changes without evidence of acute abnormality. ACT 112: Negative or not required by law. Electronically signed by: Bryant Arzola M.D. 06/25/2022 1:27 PM ECG Additional Comments: Sinus rhythm with frequent Premature ventricular complexes Low voltage QRS Nonspecific ST abnormality Abnormal ECG When compared with ECG of 15-JUN-2022 14:18, Premature ventricular complexes are now Present QRS voltage has decreased Code Status & VTE Plan Code Status Full code VTE Prophylaxis Plan VTE Prophylaxis will be ordered: Yes Supervising Physician Co-Signing Physician Notes During face to face encounter, I obtained a history of present illness and performed a physical examination, I discussed plan of care with APC Peno and patient while answering all of their questions. I reviewed above note and agree with it except for the following: Most likely secondary to vasovagal. will admit to med tele and assess for any arrythmias. PG Care Time/CCT Total # of Minutes Spent Total Time Spent with Patient: Total time spent is greater than 50% in coordination of care (as documented) at patient's floor/unit and/or counseling patient: Coding [place] [address] INT INP/OBS CARE 2/55MIN Patient Type Established Medical Decision Making Moderate Complexity Diagnoses Syncope R55 Hypokalemia E87.6 Foot ulcer L97.509 Atrial fibrillation I48.91 Hyperlipidemia E78.5 HTN (hypertension) I10 Obstructive sleep apnea G47.33
--- NOTE | 2022-06-25 17:05 | Electrocardiogram Report ---
Test Reason : Blood Pressure : / mmHG Vent. Rate : 091 BPM Atrial Rate : 091 BPM P-R Int : 148 ms QRS Dur : 094 ms QT Int : 374 ms P-R-T Axes : 083 002 044 degrees QTc Int : 460 ms Sinus rhythm with frequent Premature ventricular complexes Low voltage QRS Poor R wave progression, consider anterior TX vs. lead placement vs. LVH Nonspecific ST abnormality Abnormal ECG When compared with ECG of 15-JUN-2022 14:18, Premature ventricular complexes are now Present QRS voltage has decreased Confirmed by Jordy Booth ([id number]) on 06/25/2022 5:04:58 PM Referred By: REFERRED SELF Confirmed By:Madi Booth
[2022-06-25] MEDS: POTASSIUM CHLORIDE CRTAB 20 MEQ TABCR PO SCH ×2 (17:37→22:48)
[2022-06-25 17:45] LABS: C Reactive Protein < 0.50 mg/dl (0-0.5); Creatine Kinase 50 U/L (26-192)
--- NOTE | 2022-06-25 18:03 | XRay Report ---
XR foot LT 2V CLINICAL HISTORY: left second toe wound, monitor for osteo TECHNIQUE: 2 views of the left foot were obtained. Comparison: Comparison is made to left foot radiograph 01/15/2022 FINDINGS: No evidence of bony erosion is seen. Degenerative changes are seen. Soft tissue swelling seen about t he left foot. IMPRESSION: No radiographic evidence of osteomyelitis. If clinical concern remains, MRI is a more sensitive modal ity. ACT 112: Negative or not required by law. Electronically signed by: Bryant Arzola M.D. 06/25/2022 6:01 PM
[2022-06-25] MEDS ORDERED: ACETAMINOPHEN 325 MG TAB PO PRN (19:21)
[2022-06-25] MEDS ORDERED: ALBUTEROL HFA 8 GM INHALER INH PRN (19:21)
[2022-06-25] MEDS ORDERED: WARFARIN SOD 5 MG TAB PO SCH (19:21)
[2022-06-25] MEDS ORDERED: MELATONIN 3 MG TAB PO PRN (21:37)
[2022-06-25] MEDS ORDERED: ESZOPICLONE 1 MG TAB PO PRN (21:41)
[2022-06-25] MEDS: DOXYCYCLINE HYCLATE 100 MG CAP PO SCH (22:49)
[2022-06-25] MEDS ORDERED: Nursing to Pharmacy Communication SCH (23:15)
[2022-06-25] MEDS ORDERED: WARFARIN SOD 5 MG TAB PO ONE (23:30)
[2022-06-26 06:18] LABS: Basophils # (auto) 0.04 K/uL (0-0.2); Basophils % (auto) 0.6 %; Eosinophils # (auto) 0.04 K/uL (0-0.50); Eosinophils % (auto) 0.6 %; Hematocrit (blood only) 42.8 % (37.0-47.0); Hemoglobin 14.2 g/dl (12.0-16.0); Immature Granulocytes # (auto) 0.03 K/uL (0.01-0.20); Immature Granulocytes % (auto) 0.5 %; Lymphocytes # (auto) 1.36 K/uL (1.2-3.4); Lymphocytes % (auto) 20.7 %; Mean Corpuscular Hemoglobin 30.5 pg (25.0-34.0); Mean Corpuscular Hgb Conc 33.2 g/dL (32.0-36.0); Mean Corpuscular Volume 91.8 fL (80.0-100.0); Mean Platelet Volume 9.6 fL (9.4-12.4); Monocytes # (auto) 0.97 K/uL (0.11-0.59); Monocytes % (auto) 14.7 %; Neutrophils # (auto) 4.14 K/uL (1.40-6.50); Neutrophils % (auto) 62.9 %; Platelet Count 214 K/uL (130-400); RDW Coefficient of Variation 14.1 % (11.5-14.5); RDW Standard Deviation 47.9 fL (36.4-46.3); Red Blood Count 4.66 M/uL (4.20-5.40); White Blood Count 6.58 K/ul (4.8-10.8)
[2022-06-26 06:41] LABS: BUN Creatinine Ratio 21.4 (10-20); Calcium 8.9 mg/dl (8.6-10.3); Est GFR (African American) 75.5 ml/min; Est GFR (Non-African American) 65.2 ml/min; Magnesium 1.9 mg/dl (1.7-2.4)
[2022-06-26 06:44] LABS: INR 1.7 (0.9-1.1); Prothrombin Time 18.2 Seconds (9.0-12.0)
[2022-06-26] MEDS: DOXYCYCLINE HYCLATE 100 MG CAP PO SCH (08:53)
[2022-06-26] MEDS ORDERED: METOPROLOL SUCC 25MG EXT REL TAB PO SCH (09:00)
--- NOTE | 2022-06-26 11:17 | Discharge Summary ---
Date of Service June 26, 2022 Admission HPI Per Admitting Provider Emma is an 82 year old female with a PMH significant for afib on Eliquis, Roz-Danlos syndrome, OTIS who presented to the [facility] ED on 06/25/22 with a syncopal episode last night with ongoing lightheadedness/dizziness. In the ED the patient was found to be stable. Labs were significant for an INR of 2.0, potassium of 3.0, AG of [address] of the head, CT of the cervical spine, and xray of the pelvis were WNL. Prior to admission the patient was given 2L NSS, and dose of doxycycline, and Mupirocin topical ointment. At the time of the exam the patient was sitting in bed in no acute distress with her daughter sitting bedside. The patient states that she saw her PCP approximately one week ago due to significant LE edema. At that visit she was started on 10 mg PO torsemide daily which she has been taking as prescribed. She and her daughter state that she has had an approximately 12 lb weight loss over the past week. She has had a sore spot on her left second toe, which was initially a blister when her LE's were very swollen. This progressed to be more erythematous and painful over the weekend. She called the PCP answering service and was started on Keflex, of which she does not feel as though is helping. Yesterday she was feeling weak and sat on the toilet to try and have a BM. During this time she became lightheaded/dizzy and lost consciousness. She states that she woke up on the ground a "few minutes" later and was able to get herself up. She had her Son stay over with her last night to bed safe and did not take her dose of Warfarin last night. She is currently without pain after her fall, she does think that she hit her head. She states that her head still feels "a little fuzzy, like it has cotton balls in it". She denies any recent fever, chills, headache, changes in vision, hearing, taste, and smell, chest pain, SOB, ABD pain, nausea, vomiting, dysuria hematuria, melena, and recurrent falls since yesterday. She and her daughter feel as though her LE swelling is much improved but they are concerned her left foot is infected. She is a full code and would want her son to make medical decisions for her if she could not make them herself. Please refer to Dr. Alarcon's attestation for any changes to the treatment plan Principal Diagnosis Syncope, volume depletion, hypokalemia Discharge Exam General-alert and oriented x3, no fevers, no chills HEENT-head atraumatic and normocephalic, , pupils equal and reactive to light, extraocular muscles intact Neck-no lymphadenopathy or thyromegaly, trachea midline Chest-clear to auscultation percussion. No rales wheezing or rhonchi Cardiac-irregular rhythm consistent with atrial fibrillation. Controlled rate. Normal S1 and S2 Abdomen-normal bowel sounds, nontender, no hepatosplenomegaly Extremities-no cyanosis, clubbing, or edema Neuro-cranial nerves II through XII intact, motor and sensory function within normal limits, strength symmetrical , no focal deficits Psych-normal affect, normal mood Discharge Data Allergies Allergy/AdvReac Type Severity Reaction Status Date / Time lisinopril Allergy Intermediate swollen Verified 06/25/22 15:20 upper lip Feb 2021, drug on hold adhesive Allergy Mild TAPE Verified 06/25/22 15:20 codeine Allergy Mild Unknown Verified 06/25/22 15:20 azithromycin Allergy Unknown Unknown Verified 06/25/22 15:20 blue dye Allergy Unknown UNKNOWN Verified 06/25/22 15:20 bupropion [From Wellbutrin] Allergy Unknown Unknown Verified 06/25/22 15:20 duloxetine Allergy Unknown UNKNOWN Verified 06/25/22 15:20 fluoxetine Allergy Unknown UNKNOWN Verified 06/25/22 15:20 oxycodone Allergy Unknown Unknown Verified 06/25/22 15:20 pregabalin Allergy Unknown UNKNOWN Verified 06/25/22 15:20 tramadol Allergy Unknown UNKNOWN Verified 06/25/22 15:20 venlafaxine Allergy Unknown UNKNOWN Verified 06/25/22 15:20 meloxicam AdvReac Severe FEET AND Verified 06/25/22 15:23 LOWER LEGS SWELLED amoxicillin AdvReac Intermediate DIARRHEA Verified 06/25/22 15:20 clavulanic acid AdvReac Intermediate DIARRHEA Verified 06/25/22 15:20 amlodipine AdvReac Mild dry mouth Verified 06/25/22 15:20 hydrochlorothiazide AdvReac Mild dry mouth Verified 06/25/22 15:20 celecoxib AdvReac Unknown swelling Verified 06/25/22 15:20 of legs Consultations 06/25/22 14:20 ED Decision to Admit Stat Ordered Studies 06/25/22 11:16 CT cervical spine wo con Stat CT head/brain wo con Stat Hospital Course (1) Syncope: Probably from volume depletion and orthostasis related to diuresis from recent torsemide. Now resolved after IV fluids. Torsemide has been discontinued. No evidence of GI bleeding. (2) Hypokalemia: Corrected with oral replacement. (3) Foot ulcer: Left second toe ulcer. Keflex has been switched to doxycycline. She will follow-up with her PCP as an outpatient (4) Atrial fibrillation: Currently rate controlled. Continue warfarin. (5) Hyperlipidemia: Statin therapy. CK is normal (6) HTN (hypertension): Stable . Torsemide has been discontinued (7) Obstructive sleep apnea: HS CPAP Plan Home today, June 26. Torsemide has been discontinued. Cephalexin has been switched to doxycycline. Total Time Total Time Spent Total Time Spent (In Minutes): 45 minutes Discharge Plan Discharge Items Patient Disposition: Home - Self-Care Reason For Visit: SYNCOPE Discharge Diagnosis: Syncope, volume depletion, hypokalemia Activity: Resume your previous activity Non-emergency contact: Primary Care Provider Call non-emergency contact if: you have any medication questions Follow-up/Referrals: Francisco Wallis MD [Primary Care Provider] - Diet: Regular and Heart Healthy Addtl Attending Provider Instructions: Torsemide has been discontinued. Cephalexin has been switched to doxycycline Pending Studies at Discharge: No Stand-Alone Forms: [employer], Smoking Cessation Medications and DC Order Prescriptions: New doxycycline hyclate 100 mg Capsule 100 mg PO BID Qty: 20 0RF Continued Probiotic Pearls Women's 1 billion cell capsule,delayed release(DR/EC) 1 cap PO DAILY cholecalciferol (vitamin D3) 2,000 unit capsule 2,000 units PO DAILY PreserVision AREDS-2 [id number] ds-txcp-wy-mg capsule 1 tab PO BID Rx Instructions: administer with meals fexofenadine [Jaimee Allergy] 180 mg tablet 180 mg PO DAILY PRN (Reason: allergy symptoms) warfarin 5 mg tablet See Rx Instructions PO UD Dose Instruction: TAKE 1 TABLET EVERY DAY Rx Instructions: PER PT "TAKES 5 MG Q EVENING". 2.5mg q /, 5mg x 5 days per [facility] orally use as directed; fluticasone propionate 50 mcg/actuation spray,suspension 2 spray INTNAS DAILY PRN (Reason: allergy symptoms) Qty: 47.4 0RF Rx Instructions: administer into each nostril azelastine 137 mcg (0.1 %) aerosol,spray 1 spray intranasal BID PRN (Reason: allergic symptoms) Qty: 1 2RF albuterol sulfate [Proventil HFA] 90 mcg/actuation HFA aerosol inhaler 1 - 2 puff INHALATION .COMPLEX PRN (Reason: Shortness Of Breath Or Wheezing) Qty: 8.5 0RF Rx Instructions: 1 - 2 puff INHALATION every 4-6 hours PRN; (DME) Oxygen Home Liters Per Minute See Rx Instructions .Route Qty: 1 0RF Rx Instructions: 2LPM SUPPLEMENTAL OXYGEN VIA NASAL CANULA DX: G47.34, G47.33 LENGTH OF NEED: 99 MONTHS metoprolol succinate [Toprol XL] 25 mg tablet extended release 24 hr 25 mg PO DAILY Qty: 90 3RF simvastatin [Zocor] 40 mg tablet 40 mg PO DAILY Qty: 90 3RF eszopiclone 2 mg tablet 2 mg PO HS Qty: 90 1RF Savella 100 mg tablet 100 mg PO .COMPLEX Rx Instructions: 100 mg; 1/2 tab AM; 1 tab HS (DME) CPAP Machine Misc See Rx Instructions .Route Rx Instructions: As directed nystatin 100,000 unit/gram powder 1 applic topical BID PRN (Reason: rash) Qty: 30 0RF (DME) Aerochamber Plus Flow-Vu spacer See Dose Instructions .ROUTE .MEDSUPPLY Qty: 1 Rx Instructions: As directed CPAP triamcinolone acetonide 0.025 % cream 1 applic topical DAILY PRN (Reason: Skin Irritation) tretinoin 0.025 % cream 1 applic topical Q OTHER DAY PRN (Reason: Skin Irritation) acyclovir 400 mg tablet 400 mg PO DAILY Rx Instructions: TAKE 1 TABLET BY MOUTH DAILY polyethylene glycol 3350 [Miralax] 17 gram/dose powder 17 g PO DAILY PRN (Reason: Constipation) Discontinued torsemide 10 mg tablet 10 mg PO DAILY Qty: 14 2RF cephalexin 500 mg capsule 500 mg PO TID Qty: 21 0RF Rx Instructions: STARTED 06/23/22 FOR 7 DAYS. Discharge Orders: Discharge Order (Routine); Ordered 06/26/22 Ordered By: Iván Mccloud Admission Data Admit Date/Time: 06/25/22 16:46 Attending Provider: Iván Mccloud Admit Provider: Stephen Alarcon Primary Care Provider: Francisco Wallis Other Providers: Stephen Alarcon Coding Level of Care Code 73032 INP/OBS DISCH >30 MIN Diagnoses Syncope R55 Hypokalemia E87.6 Foot ulcer L97.509 Atrial fibrillation I48.91 Hyperlipidemia E78.5 HTN (hypertension) I10 Obstructive sleep apnea G47.33
--- NOTE | 2022-06-26 11:25 | XCELERA ---
[id number]
[2022-06-26] MEDS ORDERED: WARFARIN SOD 2.5 MG TAB PO SCH (16:00)
[2022-06-27] MEDS ORDERED: WARFARIN SOD 5 MG TAB PO SCH (20:00)
== END 2022-06-26 15:30 | disposition home or self-care (01) ==
LOC: 2N 10:08 → ED 10:08 → SUATTDRO 16:46 → 2N 18:46